=== PATIENT | female | born 1965 | race Caucasian/White ===

== ENCOUNTER → 2017-09-23 | Outpatient (CLI) | payer OTHER | LOC: M EKG 18:29 | DX: R06.09 Other forms of dyspnea (principal) ==

== ENCOUNTER 2017-12-15 11:42 | Day surgery (SDC) | payer OTHER ==
[2017-12-15] MEDS ORDERED: LIDOCAINE 1% MDV 20ML VIAL SQ (12:00)
[2017-12-15] MEDS: LR 1,000 ML IV (13:08)
[2017-12-15] MEDS ORDERED: ONDANSETRON 4MG/2ML VIAL (J2405) As Ordered (15:05)
[2017-12-15] MEDS ORDERED: KETOROLAC 60 MG/2 ML VIAL (J1885) As Ordered (15:05)
[2017-12-15] MEDS ORDERED: dexameTHASONE 4 MG/ML 1ML VIAL (J1100) As Ordered (15:05)
[2017-12-15] MEDS ORDERED: LIDOCAINE 2% INJ 100 MG/5 ML SDV (FOR ANES.) As Ordered (15:05)
[2017-12-15] MEDS ORDERED: PROPOFOL 200 MG/20 ML VIAL As Ordered (15:05)
[2017-12-15] MEDS ORDERED: LIDOCAINE 2% JELLY 30 ML As Ordered (15:05)
[2017-12-15] MEDS ORDERED: MIDAZOLAM INJ 2 MG/2 ML VIAL (J2250) As Ordered (15:06)
[2017-12-15] MEDS ORDERED: fentaNYL 100 MCG/2 ML INJECTION (J3010) As Ordered (15:06)
[2017-12-15] MEDS ORDERED: HYDROmorphone HCL 1 MG/ML SYRINGE (J1170) IV (16:15)
[2017-12-15] MEDS ORDERED: LR 1,000 ML IV (16:15)
[2017-12-15] MEDS: PERCOCET 5MG/325MG TAB PO ×2 (16:32→17:01)
[2017-12-15] MEDS: ONDANSETRON 4MG/2ML VIAL (J2405) IV (16:32)
[2017-12-15] MEDS: fentaNYL 100 MCG/2 ML INJECTION (J3010) IV ×4 (16:36→16:55)
== END 2017-12-15 18:27 | disposition home or self-care (01) ==
LOC: M SDC 11:42
DX: N92.0 Excessive and frequent menstruation with regular cycle (principal); N94.3 Premenstrual tension syndrome; G43.909 Migraine, unspecified, not intractable, without status migrainosus; K59.00 Constipation, unspecified; D64.9 Anemia, unspecified; Z88.2 Allergy status to sulfonamides; Z98.51 Tubal ligation status
CPT/HCPCS: 58563

== ENCOUNTER → 2019-03-03 | Outpatient (REF) | payer OTHER ==
[~2019-03-03] MED LIST: ADVICAP PO; [UNRECOGNIZED DRUG - CODE] PO
[2019-03-03 16:05] LABS: APPEARANCE, URINE CLEAR (CLEAR); BACTERIA, URINE AUTO 1+ (NEGATIVE); BILIRUBIN, URINE AUTO NEGATIVE (NEGATIVE); BLOOD, URINE BLOOD NEGATIVE (NEGATIVE); COLOR, URINE YELLOW (YELLOW); GLUCOSE, URINE (UA) AUTO NEGATIVE (NEGATIVE); KETONE, URINE AUTO 1+ mg/dL (NEGATIVE); LEUKOCYTE ESTERASE, URINE AUTO NEGATIVE (NEGATIVE); MUCUS, URINE SMALL (NEGATIVE); NITRITE, URINE AUTO NEGATIVE (NEGATIVE); PROTEIN, URINE AUTO NEGATIVE (NEGATIVE); RBC, URINE AUTO 0 /HPF (0-3); SPECIFIC GRAVITY URINE AUTO 1.013 (1.002-1.035); SQUAMOUS EPITHELIAL CELL UR AU 2 /HPF (0-6); UROBILINOGEN, URINE AUTO 0.2 mg/dL (0.0-2.0); WBC, URINE AUTO 1 /HPF (0-3)
== END ==
LOC: M LAB REF 15:36
PROVIDERS: ATTEND Nurse Practitioner Family
DX: N39.0 Urinary tract infection, site not specified (principal)

== ENCOUNTER 2021-08-12 19:36 | Inpatient (IN) | payer OTHER, SELFPAY ==
[~2021-08-12] VITALS: Ht 157.5 cm; Wt 87.3 kg
--- OUTSIDE RECORDS SUMMARY | 2021-08-12 19:41 | CCD | Continuity of Care Document ---
Author Author Sravani SEGURA M.D. Organization Unknown Address [address] [place] [address] Phone [phone] Care Team Providers Care Financial Planning Analyst Name Role Phone Colaníbaluabeck AUTM [phone] Problems Description No Active Problems Social History Type Date Description Comments Sex Unknown Tobacco Use Start: Unknown Never Used Smokeless Tobacco ETOH Use Occasionally consumes alcohol ETOH Use Occasionally consumes wine Tobacco Use Start: 09/19/77 End: 09/19/79 Patient is a forme r smoker on and off average of less than pack a week Recreational Drug Use Denies Drug Use Smoking Status Reviewed: 07/09/21 Patient is a former smoker on and off average of less than pack a week Exercise Type/Frequency Exercises regularly Exercise Limitations Joint Pain bilateral f oot pain Tattoo/Piercing Pierced ears Sun Exposure Minimum amount of sun exposure Sun Exposure Uses sunscreen Sun Exposure Uses greater than 30 SPF Seat Belt/Car Seat Always uses seat belt Guns in Home Yes, Locked Up Smoke Alarms Yes Smoke Alarms Carbon Monoxide Detector: Yes Allergies and adverse reactions Active Allergies Criticality Reaction | Severity Comments Date Sulfa Antibiotics Unable to assess criticality Urticaria, hives | M oderate 01/10/2014 Medications Active Medications SIG Qnty Indications Ordering Provide r Date Prednisone 10mg Tablets 4 po q d xs 3 d then 3 q d xs 3 d then 2 q d xs 3 d then 1 qd for 3 days then 1/2 qd for 4 days 32tabs J01.90 Licha Segura M.D. 07/09/2021 Azelastine HCL (Nasal) 0.1% Soluti on use 2 sprays in each nostril two times a day 30ml J01.90 Licha Segura M.D. 07/09/2021 Emergen-C Immune Packet 1 Packet per day Unknown Vitamin D 3 2000Iu Capsules 1 by mouth every day Unknown History Medications Cefdinir 300mg Capsules one by mouth twice a day for 10 days 20caps J01.90 Licha Segura M.D. 06/16 - 06/26/2021 Immunizations CPT Code Status Date Vaccine Lot # [id number] Refused 06/21/2019 Influenza Virus Vaccine, Shmuel drivalent,multidose vial Vital Signs Date Vital Result Comment 07/09/2021 10:53am BP Systolic 166 mmHg BP Diastolic 96 mmHg BP Systolic Recheck 152 mmHg BP Diastolic Recheck 90 mmHg Heart Rate 65 /min Body Temperature 96.8 F Respiratory Rate 17 /min Height 61.75 inches 5'1.75" Weight 190.38 lb O2 % BldC Oximetry 98 % Peak Expiratory Flow Rate 325 Estimated Peak Flow Rate [place] Body Weight 105 lb BMI (Body Mass Index) 35.1 kg/m2 06/16/2021 7:03am BP Systolic 142 mmHg BP Diastolic 84 mmHg BP Systolic Recheck 139 mmHg BP Diastolic Recheck 93 mmHg Heart Rate 66 /min Body Temperature 96.8 F Respiratory Rate 17 /min Height 61.75 inches 5'1.75" Weight 187.12 lb O2 % BldC Oximetry 99 % Peak Expiratory Flow Rate 325 Estimated Peak Flow Rate [place] Body Weight 105 lb BMI (Body Mass Index) 34.5 kg/m2 Results Description No Information Available Procedures Date Code Description Status 06/16/2021 25487 Office/Outpatient Established w MDM 20-29 Min Completed 08/2019 [id number] Mammogram Completed Medical Devices Description No Information Available Encounters Type Date Location Provider Dx Diagnosis Office Visit 06/16/2021 7:05a Main Office Licha Segura M.D. J 01.90 Acute sinusitis, unspecified Assessments Date Code Description Provider 07/09/2021 J01.90 Acute sinusitis, unspecified Licha Sterling M.D. 06/16/2021 J01.90 Acute sinusitis, unspecified Licha Sterling M.D. Plan of Treatment 07/09/2021 - Licha Segura M.D.* J01.90 Acute sinusitis, unspecified* New Medication:* Prednisone 10 mg - 4 po q d xs 3 d then 3 q d xs 3 d then 2 q d xs 3 d then 1 qd for 3 days then 1/2 qd for 4 days * Azelastine HCL (Nasal) 0.1 % - use 2 sprays in each nostril two times a day Functional Status Functional Condition Comment Date Status Bifocal glasses Active Independent with all ADL's Activ e Independent with all IADL's Acti ve Mental Status Mental Condition Comment Date Status None Active Referrals Description No Information Available
--- OUTSIDE RECORDS SUMMARY | 2021-08-12 19:41 | CCD | Continuity of Care Document ---
Author Author Sravani TRIVEDI M.D. Organization Unknown Address [address] [place] [address] Phone [phone] Care Team Providers Care Refrigeration Mechanic Name Role Phone Cologuard AUTM [phone] Problems Description No Active Problems Social History Type Date Description Comments Sex Unknown Tobacco Use Start: Unknown Never Used Smokeless Tobacco ETOH Use Occasionally consumes alcohol ETOH Use Occasionally consumes wine Tobacco Use Start: 09/19/77 End: 09/19/79 Patient is a forme r smoker on and off average of less than pack a week Recreational Drug Use Denies Drug Use Smoking Status Reviewed: 06/16/21 Patient is a former smoker on and [...] Yes Smoke Alarms Carbon Monoxide Detector: Yes Allergies, Adverse Reactions, Alerts Active Allergies Criticality Reaction | Severity Comments Date Sulfa Antibiotics Unable to assess criticality Urticaria, hives | M oderate 01/10/2014 Medications Active Medications SIG Qnty Indications Ordering Provide r Date Cefdinir 300mg Capsules one by mouth twice a day for 10 days 20caps J01.90 Licha Trivedi M.D. 06/16 Emergen-C Immune Packet 1 Packet per day Unknown Vitamin D 3 2000Iu Capsules 1 by mouth every day Unknown History Medications Azelastine HCL (Nasal) 137mcg/[place] Solution 1-2 sprays each nostril once daily 1units J30.9 Terrencea Licha wright M.D. 01/02/2021 - 06/16/2021 Azelastine HCL (Nasal) 0.15% Solut ion 1-2 sprays each nostril once daily 1units J30.9 Licha Trivedi M.D. 12/31/2020 - 01/02/2021 Immunizations CPT Code Status Date Vaccine Lot # [id number] Refused 06/21/2019 Influenza Virus Vaccine, Shmuel drivalent,multidose vial Vital Signs Date Vital Result Comment 06/16/2021 7:03am BP Systolic 142 mmHg BP Diastolic 84 mmHg BP Systolic Recheck 139 mmHg BP Diastolic Recheck 93 mmHg Heart Rate 66 /min Body Temperature 96.8 F Respiratory Rate 17 /min Height 61.75 inches 5'1.75" Weight 187.12 lb O2 % BldC Oximetry 99 % Peak Expiratory Flow Rate 325 Estimated Peak Flow Rate [place] Body Weight 105 lb BMI (Body Mass Index) 34.5 kg/m2 12/31/2020 7:06am BP Systolic 127 mmHg BP Diastolic 84 mmHg Heart Rate 71 /min Body Temperature 96.8 F Respiratory Rate 14 /min Height 61.75 inches 5'1.75" Weight 185.38 lb Peak Expiratory Flow Rate 325 Estimated Peak Flow Rate [place] Body Weight 105 lb BMI (Body Mass Index) 34.2 kg/m2 Results Test Acquired Date Facility Test Result H/L Range Note CBC With Differential/Platelet 12/18/[address] [facility] [address] [place] [address] [id number] [phone] WBC 7.0 x10E3/uL 3.4-10.8 RBC 4.46 x10E6/uL 3.77-5.28 Hemoglobin 13.6 g/dL 11.1-15.9 Hematocrit 43.1 % 34.0-46.6 MCV 97 fL 79-97 MCH 30.5 pg 26.6-33.0 MCHC 31.6 g/dL 31.5-35.7 RDW 12.4 % 11.7-15.4 Platelets 298 x10E3/uL 150-450 Neutrophils 60 % Not Estab. Lymphs 29 % Not Estab. Monocytes 7 % Not Estab. Eos 3 % Not Estab. Basos 1 % Not Estab. Immature Cells TNP Neutrophils (Absolute) 4.2 x10E3/uL 1.4-7.0 Lymphs (Absolute) 2.1 x10E3/uL 0.7-3.1 Monocytes(Absolute) 0.5 x10E3/uL 0.1-0.9 Eos (Absolute) 0.2 x10E3/uL 0.0-0.4 Baso (Absolute) 0.1 x10E3/uL 0.0-0.2 Immature Granulocytes 0 % Not Estab. Immature Grans (Abs) 0.0 x10E3/uL 0.0-0.1 NRBC TNP Hematology Comments: TNP Metabolic Panel (14), Comprehensive 12/18/2020 [facility] [address] [place] [address] [phone] Glucose 119 mg/dL High 65-99 BUN 18 mg/dL 6-24 Creatinine 0.68 mg/dL 0.57-1.00 eGFR If NonAfricn Am 98 mL/min/1.73 >59 eGFR If Africn Am 113 mL/min/1.73 >59 BUN/Creatinine Ratio 26 High 9-23 Sodium 138 mmol/L 134-144 Potassium 4.0 mmol/L 3.5-5.2 Chloride 102 mmol/L 96-106 Carbon Dioxide, Total 25 mmol/L 20-29 Calcium 9.4 mg/dL 8.7-10.2 Protein, Total 7.7 g/dL 6.0-8.5 Albumin 4.2 g/dL 3.8-4.9 Globulin, Total 3.5 g/dL 1.5-4.5 A/G Ratio 1.2 1.2-2.2 Bilirubin, Total 0.3 mg/dL 0.0-1.2 Alkaline Phosphatase 48 IU/L 39-117 Ast (Sgot) 25 IU/L 0-40 Alt (SGPT) 24 IU/L 0-32 Lipid Panel 12/18/2020 [facility] [address] [place] [address] [phone] Cholesterol, Total 223 mg/dL High 100-199 Triglycerides 110 mg/dL 0-149 HDL Cholesterol 73 mg/dL >39 VLDL Cholesterol [place] 19 mg/dL 5-40 LDL Chol Calc (Nih) 131 mg/dL High 0-99 Comment: [place] Laboratory test finding 12/18/2020 [facility] [address] [phone] TSH 2.210 uIU/mL 0.450-4.500 Procedures Date Code Description Status 12/31/2020 03548 Office/Outpatient Established Mo d MDM 30-39 Min Completed 08/2019 [id number] Mammogram Completed Medical Devices Description No Information Available Encounters Type Date Location Provider Dx Diagnosis Office Visit 12/31/2020 7:15a Main Office Licha Trivedi M.D. R 03.0 Elevated blood-pressure reading, w/o diagnosis of htn J30.9 Allergic rhinitis, unspecifi ed Assessments Date Code Description Provider 06/16/2021 J01.90 Acute sinusitis, unspecified Licha Sterling M.D. 12/31/2020 R03.0 Elevated blood-pressure reading, without diagnosis of hypert Licha Trivedi M.D. 12/31/2020 J30.9 Allergic rhinitis, unspecified W Licha washington M.D. Plan of Treatment 06/16/2021 - Licha Trivedi M.D.* J01.90 Acute sinusitis, unspecified* New Medication:* Cefdinir 300 mg - one by mouth twice a day for 10 days Functional Status Functional Condition Comment Date Status Bifocal glasses Active Independent with all ADL's Activ e Independent with all IADL's Acti ve Mental Status Mental Condition Comment Date Status None Active Referrals Description No Information Available
--- OUTSIDE RECORDS SUMMARY | 2021-08-12 19:41 | CCD | Continuity of Care Document ---
Author Author Sravani SEGURA M.D. Organization Unknown Address [address] [place] [address] Phone [phone] Care Team Providers Care Video Tape Transferrer Name Role Phone Colaníbaluabeck AUTM [phone] Problems Description No Active Problems Social History [...] a day for 10 days 20caps J01.90 Lciha Segura M.D. 06/16 - 06/26/2021 Immunizations CPT Code Status Date Vaccine Lot # [id number] Refused 06/21/2019 Influenza Virus Vaccine, Shmuel drivalent,multidose [...] Flow Rate 325 Estimated Peak Flow Rate [place] Body Weight 105 lb BMI (Body Mass [...] Flow Rate 325 Estimated Peak Flow Rate [place] Body Weight 105 lb BMI (Body Mass Index) 34.5 kg/m2 Results Description No Information Available Procedures Date Code Description Status 07/09/2021 96504 Office/Outpatient Established Lo w MDM 20-29 Min Completed 06/16/2021 69439 Office/Outpatient Established Lo w MDM 20-29 Min Completed 08/2019 [id number] Mammogram Completed Medical Devices Description No Information Available Encounters Type Date Location Provider Dx Diagnosis Office Visit 07/09/2021 10:45a Main Office Licha Segura M.D. J Acute sinusitis, unspecified Office Visit 06/16/2021 7:05a Main Office Licha Segura M.D. J Acute sinusitis, unspecified Assessments Date Code Description [...]
--- OUTSIDE RECORDS SUMMARY | 2021-08-12 19:41 | CCD | Continuity of Care Document ---
Author Author Sravani TRIVEDI M.D. Organization Unknown Address [address] [place] [address] Phone [phone] Care Team Providers Care Educational Technology Coordinator Name Role Phone Cologuard AUTM [phone] Problems Description No Active Problems Social History [...] day Unknown History Medications Azelastine HCL (Nasal) 137mcg/[place] Solution 1-2 sprays each nostril once daily 1units J30.9 Terrencea Licha wright M.D. 01/02/2021 - 06/16/2021 Azelastine HCL (Nasal) 0.15% Solut ion 1-2 sprays each nostril once daily 1units J30.9 Licha Trivedi M.D. 12/31/2020 - 01/02/2021 Immunizations CPT Code Status Date Vaccine Lot # [id number] Refused 06/21/2019 Influenza Virus Vaccine, Shmuel drivalent,multidose [...] Flow Rate 325 Estimated Peak Flow Rate [place] Body Weight 105 lb BMI (Body Mass Index) 34.5 kg/m2 12/31/2020 7:06am BP Systolic 127 mmHg BP Diastolic 84 mmHg Heart Rate 71 /min Body Temperature 96.8 F Respiratory Rate 14 /min Height 61.75 inches 5'1.75" Weight 185.38 lb Peak Expiratory Flow Rate 325 Estimated Peak Flow Rate [place] Body Weight 105 lb BMI (Body Mass Index) 34.2 kg/m2 Results Test Acquired Date Facility Test Result H/L Range Note CBC With Differential/Platelet 12/18/[address] [facility] [address] [place] [address] [phone] WBC 7.0 x10E3/uL 3.4-10.8 RBC 4.46 x10E6/uL [...] Panel (14), Comprehensive 12/18/2020 [facility] [address] [place] [address] [phone] Glucose 119 mg/dL High 65-99 BUN 18 [...] IU/L 0-32 Lipid Panel 12/18/2020 [facility] [address] [place] [address] [phone] Cholesterol, Total 223 mg/dL High 100-199 Triglycerides 110 mg/dL 0-149 HDL Cholesterol 73 mg/dL >39 VLDL Cholesterol [place] 19 mg/dL 5-40 LDL Chol Calc (Nih) 131 mg/dL High 0-99 Comment: [place] Laboratory test finding 12/18/2020 [facility] [address] [place] [address] [phone] TSH 2.210 uIU/mL 0.450-4.500 Procedures Date Code Description Status 06/16/2021 06620 Office/Outpatient Established Lo w MDM 20-29 Min Completed 12/31/2020 49969 Office/Outpatient Established Mo d MDM 30-39 Min Completed 08/2019 [id number] Mammogram Completed Medical Devices Description No Information Available Encounters Type Date Location Provider Dx Diagnosis Office Visit 06/16/2021 7:05a Main Office Licha Trivedi M.D. J 01.90 Acute sinusitis, unspecified Office Visit 12/31/2020 7:15a Main Office Licha Trivedi M.D. R 03.0 Elevated blood-pressure reading, w/o diagnosis of htn J30.9 Allergic rhinitis, unspecifi ed Assessments Date Code Description Provider 06/16/2021 J01.90 Acute sinusitis, unspecified Kapil Licha land M.D. 12/31/2020 R03.0 Elevated blood-pressure reading, without [...]
--- OUTSIDE RECORDS SUMMARY | 2021-08-12 19:41 | CCD | Continuity of Care Document ---
Author Author Sravani SEGURA M.D. Organization Unknown Address [address] [place] [address] Phone [phone] Care Team Providers Care Branch Associate Teller Name Role Phone Colaníbaluabeck AUTM [phone] Problems Description No Active Problems Social History [...] 1/2 qd for 4 days 32tabs J01.90 Lciha Segura M.D. 07/09/2021 Azelastine HCL (Nasal) 0.1% [...] CPT Code Status Date Vaccine Lot # [id number] Refused 06/21/2019 Influenza Virus Vaccine, Shmuel drivalent,multidose [...] Flow Rate 325 Estimated Peak Flow Rate [place] Body Weight 105 lb BMI (Body Mass [...] Flow Rate 325 Estimated Peak Flow Rate [place] Body Weight 105 lb BMI (Body Mass Index) 34.5 kg/m2 Results Description No Information Available Procedures Date Code Description Status 06/16/2021 62867 Office/Outpatient Established w MDM 20-29 Min Completed 08/2019 [id number] Mammogram Completed Medical Devices Description No Information [...]
--- OUTSIDE RECORDS SUMMARY | 2021-08-12 19:41 | CCD | Continuity of Care Document ---
Author Author Sravani SEGURA M.D. Organization Unknown Address [address] [place] [address] Phone [phone] Care Team Providers Care Cemetery Manager Name Role Phone Colaníbaluabeck AUTM [phone] Problems Description No Active Problems Social History [...] CPT Code Status Date Vaccine Lot # [id number] Refused 06/21/2019 Influenza Virus Vaccine, Shmuel drivalent,multidose [...] Flow Rate 325 Estimated Peak Flow Rate [place] Body Weight 105 lb BMI (Body Mass [...] Flow Rate 325 Estimated Peak Flow Rate [place] Body Weight 105 lb BMI (Body Mass Index) 34.5 kg/m2 Results Description No Information Available Procedures Date Code Description Status 07/09/2021 69782 Office/Outpatient Established Lo w MDM 20-29 Min Completed 06/16/2021 22271 Office/Outpatient Established Lo w MDM 20-29 Min Completed 08/2019 [id number] Mammogram Completed Medical Devices Description No Information [...]
--- OUTSIDE RECORDS SUMMARY | 2021-08-12 19:41 | CCD | Continuity of Care Document ---
Author Author Sravani SEGURA M.D. Organization Unknown Address [address] [place] [address] Phone [phone] Care Team Providers Care Ink Blender Name Role Phone Colanbíaluabeck AUTM [phone] Problems Description No Active Problems Social History [...] CPT Code Status Date Vaccine Lot # [id number] Refused 06/21/2019 Influenza Virus Vaccine, Shmuel drivalent,multidose [...] Flow Rate 325 Estimated Peak Flow Rate [place] Body Weight 105 lb BMI (Body Mass [...] Flow Rate 325 Estimated Peak Flow Rate [place] Body Weight 105 lb BMI (Body Mass Index) 34.5 kg/m2 Results Description No Information Available Procedures Date Code Description Status 07/09/2021 22577 Office/Outpatient Established Lo w MDM 20-29 Min Completed 06/16/2021 75527 Office/Outpatient Established Lo w MDM 20-29 Min Completed 08/2019 [id number] Mammogram Completed Medical Devices Description No Information [...]
--- OUTSIDE RECORDS SUMMARY | 2021-08-12 19:42 | CCD ---
Author Author [facility] Organization [facility] Address Unknown Phone Unavailable Care Team Providers Care Credit Administration Specialist Name Role Phone Judy Segura MD Unavailable Unavailable Colton, Judy Hurt MD Unavailable Unavailable Colton, Judy Hurt MD Unavailable Unavailable Colton, Judy Hurt MD Unavailable Unavailable Colton, Judy Hurt MD Unavailable Unavailable Colton, Judy Hurt MD Unavailable Unavailable Colton, Judy Hurt MD Unavailable Unavailable Colton, Judy Hurt MD Unavailable Unavailable Colton, Judy Hurt MD Unavailable Unavailable Colton, Judy Hurt MD Unavailable Unavailable Colton, Judy Hutr MD Unavailable Unavailable Colton, Judy Hurt MD Unavailable Unavailable Colton, Judy Hurt MD Unavailable Unavailable Colton, Judy Hurt MD Unavailable Unavailable Colton, Judy Hurt MD Unavailable Unavailable Colton, Judy Hurt MD Unavailable Unavailable Colton, Judy Hurt MD Unavailable Unavailable Colton, Judy Hurt MD Unavailable Unavailable Colton, Judy Hurt MD Unavailable Unavailable Colton, Judy Hurt MD Unavailable Unavailable Colton, Judy Hurt MD Unavailable Unavailable Colton, Judy Hurt MD Unavailable Unavailable Colton, Judy Hurt MD Unavailable Unavailable Colton, Judy Hurt MD Unavailable Unavailable Colton, Judy Hurt MD Unavailable Unavailable Colton, Judy Hurt MD Unavailable Unavailable Colton, Judy Hurt MD Unavailable Unavailable Colton, Judy Hurt MD Unavailable Unavailable Colton, Judy Hurt MD Unavailable Unavailable Colton, Judy Hurt MD Unavailable Unavailable Colton, Judy Hurt MD Unavailable Unavailable Colton, Judy Hurt MD Unavailable Unavailable Colton, Judy Hurt MD Unavailable Unavailable Colton, Judy Hurt MD Unavailable Unavailable Colton, Judy Hurt MD Unavailable Unavailable Colton, Judy Hurt MD Unavailable Unavailable Colton, Judy Hurt MD Unavailable Unavailable Oclton, Judy Hurt MD Unavailable Unavailable Colton, A Licha MD Unavailable Unavailable Colton, A Licha MD Unavailable Unavailable Colton, A Licha MD Unavailable Unavailable Colton, A Licha MD Unavailable Unavailable Colton, A Licha MD Unavailable Unavailable Colton, A Licha MD Unavailable Unavailable Colton, A Licha MD Unavailable Unavailable Colton, A Licha MD Unavailable Unavailable Colton, A Licha MD Unavailable Unavailable Colton, A Licha MD Unavailable Unavailable Colton, A Licha MD Unavailable Unavailable Colton, A Licha MD Unavailable Unavailable Colton, A Licha MD Unavailable Unavailable Colton, A Licha MD Unavailable Unavailable Colton, A Licha MD Unavailable Unavailable Colton, A Licha MD Unavailable Unavailable Colton, A Licha MD Unavailable Unavailable Colton, A Licha MD Unavailable Unavailable Colton, A Licha MD Unavailable Unavailable Colton, A Licha MD Unavailable Unavailable Colton, A Licha MD Unavailable Unavailable Colton, A Licha MD Unavailable Unavailable Colton, A Licha MD Unavailable Unavailable Colton, A Licha MD Unavailable Unavailable Colton, A Licha MD Unavailable Unavailable Colton, A Licha MD Unavailable Unavailable Colton, A Licha MD Unavailable Unavailable Colton, A Licha MD Unavailable Unavailable Colton, A Licha MD Unavailable Unavailable Colton, A Licha MD Unavailable Unavailable Colton, A Licha MD Unavailable Unavailable Colton, A Licha MD Unavailable Unavailable Colton, A Licha MD Unavailable Unavailable Colton, A Licha MD Unavailable Unavailable Colton, A Licha MD Unavailable Unavailable Colton, A Licha MD Unavailable Unavailable Colton, A Licha MD Unavailable Unavailable Colton, A Licha MD Unavailable Unavailable Colton, A Licha MD Unavailable Unavailable Colton, A Licha MD Unavailable Unavailable Colton, A Licha MD Unavailable Unavailable Colton, A Licha MD Unavailable Unavailable Colton, A Licha MD Unavailable Unavailable Colton, A Licha MD Unavailable Unavailable Re-disclosure Warning The records that you are about to access may contain information from federally-assisted alcohol or drug abuse programs. If such information is present, then the following federally mandated warning applies: This information has been disclosed to you from records protected by federal confidentiality rules (42 CFR part 2). The federal rules prohibit you from making any further disclosure of this information unless further disclosure is expressly permitted by the written consent of the person to whom it pertains or as otherwise permitted by 42 CFR part 2. A general authorization for the release of medical or other information is NOT sufficient for this purpose. The Federal rules restrict any use of the information to criminally investigate or prosecute any alcohol or drug abuse patient.The records that you are about to access may contain highly sensitive health information, the redisclosure of which is protected by Article 27-F of the [facility] Public Health law. If you continue you may have access to information: Regarding HIV / AIDS; Provided by facilities licensed or operated by the [facility] Office of Mental Health; or Provided by the [facility] Office for People With Developmental Disabilities. If such information is present, then the following [facility] mandated warning applies: This information has been disclosed to you from confidential records which are protected by state law. State law prohibits you from making any further disclosure of this information without the specific written consent of the person to whom it pertains, or as otherwise permitted by law. Any unauthorized further disclosure in violation of state law may result in a fine or [place] [facility] sentence or both. A general authorization for the release of medical or other information is NOT sufficient authorization for further disc losure. 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 Encounter Providers Location Date Indications Data Source(s ) Outpatient Attender: Licha Segura MD Main Office 07/09/2021 10:45:0 0 AM EDT [facility] Outpatient Attender: Licha Segura MD Main Office 06/16/2021 07:05:0 0 AM EDT [facility] Outpatient Attender: Licha Segura MD Main Office 12/31/2020 07:15:0 0 AM EDT [facility] Outpatient Attender: Licha Segura MD Main Office 09/23/2020 02:45:0 0 PM EST [facility] Medications Medication Brand Name Start Date Product Form Dose Route Admi nistrative Instructions Pharmacy Instructions Status Indications Reaction Description Data Source(s) Prednisone 10 MG Oral Tablet Prednisone 07/09/2021 12:00:00 AM EDT ORAL active [facility] 137 mcg (0.1 %) 07/09/2021 12:00:00 AM EDT aerosol,spray 30 SPRAY 2 SPRAYS IN EACH NOSTRIL TWO TIMES A DAY SPRAY 2 SPRAYS IN EACH NOSTRIL TWO TIMES A DAY SOLD: 07/09/2021 [facility] Azelastine HCL (Nasal) Azelastine HCL (Nasal) 07/09/2021 12:00:00 AM E DT active [facility] 10 mg 07/09/2021 12:00:00 AM EDT tablet 32 TAKE FOUR TABLETS BY MOUTH EVERY DAY FOR 3 DAYS, THEN 3 TABLETS FOR 3 DAYS, THEN 2 TABLETS FOR 3 DAYS, THEN 1 TABLET FOR 3 DAYS, THEN ONE-HALF TABLET FOR 4 DAYS TAKE FOUR TABLETS BY MOUTH EVERY DAY FOR 3 DAYS, THEN 3 TABLETS FOR 3 DAYS, THEN 2 TABLETS FOR 3 DAYS, THEN 1 TABLET FOR 3 DAYS, THEN ONE-HALF TABLET FOR 4 DAYS SOLD: 07/09/2021 [facility] 300 mg 06/16/2021 12:00:00 AM EDT capsule 20 TAKE ONE CAPSULE BY MOUTH TWICE A DAY FOR 10 DAYS TAKE ONE CAPSULE BY MOUTH TWICE A DAY FOR 10 DAYS SOLD : 06/16/2021 [facility] cefdinir 300 MG Oral Capsule Cefdinir 06/16/2021 12:00:00 AM EDT ORAL completed [facility] 250 mg 06/08/2021 12:00:00 AM EDT tablet 6 TAKE TWO TABLETS BY MOUTH AT ONCE ON THE FIRST DAY THEN TAKE ONE DAILY THEREAFTER TAKE TWO TABLETS BY MOUTH AT ONCE ON THE FIRST DAY THEN TAKE ONE DAILY THEREAFTER SOLD: 06/08/2021 [facility] Azelastine HCL (Nasal) Azelastine HCL (Nasal) 01/02/2021 12:00:00 AM E DT completed [facility] Azelastine HCL (Nasal) Azelastine HCL (Nasal) 12/31/2020 12:00:00 AM E DT completed [facility] 250 mg 07/25/2020 12:00:00 AM EST tablet 6 TAKE TWO TABLETS BY MOUTH AT ONCE ON THE FIRST DAY THEN TAKE ONE DAILY THEREAFTER TAKE TWO TABLETS BY MOUTH AT ONCE ON THE FIRST DAY THEN TAKE ONE DAILY THEREAFTER SOLD: 08/02/2020 [facility] Insurance Providers Payer name Policy type / Coverage type Policy ID Covered republican ID Covered republican's relationship to redding Policy Redding Plan Information [facility] [id number] 2 [id number] [place] PPO 302/307 [id number] SP [id number] [facility] [id number] [facility] UNAVAILABLE P UNAV AILABLE [facility] Commercial [id number] Family Dependent [id number] [facility] [id number] Family Dependent [id number] [facility] [id number] Family Dependent [id number] [employer] [place] 304/804 [id number] [employer] BCBS B [id number] S [id number] [employer] BCBS B [id number] P [id number] [id number] BS Of [facility] [id number] Family Dependent [id number] BS Of [facility] [place] [id number] Family Dependent BS Of [facility] [id number] Family Dependent [employer] [place] [id number] SELF PAY ONLY [id number] SP [id number] BCBS [place] 304/804 [id number] [facility] [id number] [facility] [id number] SP [id number] Problems, Conditions, and Diagnoses No Information Surgeries/Procedures Procedure Description Date Indications Data Source(s) OFFICE OUTPATIENT VISIT 15 MINUTES 07/09/2021 12:00:00 AM EDT [facility] OFFICE OUTPATIENT VISIT 15 MINUTES 06/16/2021 12:00:00 AM EDT [facility] OFFICE OUTPATIENT VISIT 25 MINUTES 12/31/2020 12:00:00 AM EDT [facility] Results ID Date Data Source [id number] 12/18/2020 01:45:00 PM EDT [facility] Name Value Range Interpretation Code Description Data Dorothy rce(s) Supporting Document(s) Thyrotropin [Units/volume] in Serum or Plasma 2.210 uIU/mL 0.450-4.50 0 [facility] ID Date Data Source [id number] 12/18/2020 01:45:00 PM EDT [facility] Name Value Range Interpretation Code Description Data Dorothy rce(s) Supporting Document(s) Triglyceride [Mass/volume] in Serum or Plasma 110 mg/dL 0-149 [facility] Cholesterol [Mass/volume] in Serum or Plasma 223 mg/dL 100-199 [facility] Cholesterol in HDL [Mass/volume] in Serum or Plasma 73 mg/dL [facility] Laboratory test finding (navigational concept) 19 mg/dL 5-40 [facility] Laboratory test finding (navigational concept) 131 mg/dL 0-99 [facility] Comment: Laboratory test result [facility] ID Date Data Source [id number] 12/18/2020 01:45:00 PM EDT [facility] Name Value Range Interpretation Code Description Data Dorothy rce(s) Supporting Document(s) Glucose [Mass/volume] in Serum or Plasma 119 mg/dL 65-99 [facility] Urea nitrogen [Mass/volume] in Serum or Plasma 18 mg/dL 6-24 [facility] Creatinine [Mass/volume] in Serum or Plasma 0.68 mg/dL 0.57-1.00 [facility] eGFR If NonAfricn Am 98 mL/min/1.73 [facility] eGFR If Africn Am 113 mL/min/1.73 [facility] Urea nitrogen/Creatinine [Mass Ratio] in Serum or Plasma 26 9 -23 [facility] Sodium [Moles/volume] in Serum or Plasma 138 mmol/L 134-144 [facility] Chloride [Moles/volume] in Serum or Plasma 102 mmol/L 96-106 [facility] Carbon dioxide, total [Moles/volume] in Serum or Plasma 25 mmol/L 20 -29 [facility] Potassium [Moles/volume] in Serum or Plasma 4.0 mmol/L 3.5-5.2 [facility] Protein, Total 7.7 g/dL 6.0-8.5 [facility] Albumin [Mass/volume] in Serum or Plasma 4.2 g/dL 3.8-4.9 [facility] Calcium [Mass/volume] in Serum or Plasma 9.4 mg/dL 8.7-10.2 [facility] Bilirubin.total [Mass/volume] in Serum or Plasma 0.3 mg/dL 0.0-1.2 [facility] Globulin [Mass/volume] in Serum by calculation 3.5 g/dL 1.5-4.5 [facility] Albumin/Globulin [Mass Ratio] in Serum or Plasma 1.2 1.2-2.2 [facility] Alkaline phosphatase [Enzymatic activity/volume] in Serum or Plasma 48 IU/L 39-117 [facility] Aspartate aminotransferase [Enzymatic activity/volume] in Serum or Plasma 25 IU/L 0-40 [facility] Alanine aminotransferase [Enzymatic activity/volume] in Seru m or Plasma 24 IU/L 0-32 [facility] ID Date Data Source [id number] 12/18/2020 01:45:00 PM EDT [facility] Name Value Range Interpretation Code Description Data Dorothy rce(s) Supporting Document(s) Leukocytes [#/volume] in Blood by Automated count 7.0 x10E3/uL 3.4-10 .8 [facility] Hematocrit [Volume Fraction] of Blood by Automated count 43.1 % 3 4.0-46.6 [facility] Hemoglobin [Mass/volume] in Blood 13.6 g/dL 11.1-15.9 [facility] Erythrocytes [#/volume] in Blood by Automated count 4.46 x10E6/uL 3.7 7-5.28 [facility] Erythrocyte mean corpuscular volume [Entitic volume] by Auto mated count 97 fL 79-97 [facility] Erythrocyte mean corpuscular hemoglobin [Entitic mass] by Automated count 30.5 pg 26.6-33.0 [facility] Platelets [#/volume] in Blood by Automated count 298 x10E3/uL 150-450 [facility] Erythrocyte distribution width [Ratio] by Automated count 12.4 % 11.7-15.4 [facility] Erythrocyte mean corpuscular hemoglobin concentration [Mass/volume] by Automated count 31.6 g/dL 31.5-35.7 [facility] Neutrophils 60 % [facility] Lymphocytes/100 leukocytes in Blood by Automated count 29 % [facility] Eosinophils/100 leukocytes in Blood by Automated count 3 % [facility] Monocytes/100 leukocytes in Blood by Automated count 7 % [facility] Basophils/100 leukocytes in Blood by Automated count 1 % [facility] Immature cells [#/volume] in Blood Laboratory test result [facility] Monocytes [#/volume] in Blood 0.5 x10E3/uL 0.1-0.9 [facility] Neutrophils [#/volume] in Blood by Automated count 4.2 x10E3/uL 1.4-7 .0 [facility] Lymphocytes [#/volume] in Blood 2.1 x10E3/uL 0.7-3.1 [facility] Basophils [#/volume] in Blood by Automated count 0.1 x10E3/uL 0.0-0.2 [facility] Immature granulocytes/100 leukocytes in Blood by Automated count 0 % [facility] Eosinophils [#/volume] in Blood by Automated count 0.2 x10E3/uL 0.0-0 .4 [facility] Morphology [Interpretation] in Blood Narrative Laboratory test result [facility] Nucleated erythrocytes/100 leukocytes [Ratio] in Blood by Automated count Laboratory test result [facility] Immature granulocytes [#/volume] in Blood by Automated count 0.0 x10E3/uL 0.0-0.1 [facility] ID Date Data Source [id number] 12/19/2020 06:06:00 AM EDT [facility] Name Value Range Interpretation Code Description Data Dorothy rce(s) Supporting Document(s) WBC 7.0 x10E3/uL 3.4-10.8 [facility] RBC 4.46 x10E6/uL 3.77-5.28 [facility] Hemoglobin 13.6 g/dL 11.1-15.9 [facility] Hematocrit 43.1 % 34.0-46.6 [facility] MCV 97 fL 79-97 [facility] MCH 30.5 pg 26.6-33.0 [facility] MCHC 31.6 g/dL 31.5-35.7 [facility] RDW 12.4 % 11.7-15.4 [facility] Platelets 298 x10E3/uL 150-450 [facility] Neutrophils 60 % Not Estab. [facility] Lymphs 29 % Not Estab. [facility] Monocytes 7 % Not Estab. [facility] Eos 3 % Not Estab. [facility] Basos 1 % Not Estab. [facility] Neutrophils (Absolute) 4.2 x10E3/uL 1.4-7.0 [facility] Lymphs (Absolute) 2.1 x10E3/uL 0.7-3.1 [facility] Monocytes(Absolute) 0.5 x10E3/uL 0.1-0.9 [facility] Eos (Absolute) 0.2 x10E3/uL 0.0-0.4 [facility] Baso (Absolute) 0.1 x10E3/uL 0.0-0.2 [facility] Immature Granulocytes 0 % Not Estab. [facility] Immature Grans (Abs) 0.0 x10E3/uL 0.0-0.1 [facility] ID Date Data Source [id number] 12/19/2020 07:05:00 AM EDT [facility] Name Value Range Interpretation Code Description Data Dorothy rce(s) Supporting Document(s) Glucose 119 mg/dL 65-99 Above high normal [facility] BUN 18 mg/dL 6-24 [facility] Creatinine 0.68 mg/dL 0.57-1.00 [facility] eGFR If NonAfricn Am 98 mL/min/1.73 >59 [facility] eGFR If Africn Am 113 mL/min/1.73 >59 [facility] BUN/Creatinine Ratio 26 9-23 Above high normal [facility] Sodium 138 mmol/L 134-144 [facility] Potassium 4.0 mmol/L 3.5-5.2 [facility] Chloride 102 mmol/L 96-106 [facility] Carbon Dioxide, Total 25 mmol/L 20-29 [facility] Calcium 9.4 mg/dL 8.7-10.2 [facility] Protein, Total 7.7 g/dL 6.0-8.5 [facility] Albumin 4.2 g/dL 3.8-4.9 [facility] Globulin, Total 3.5 g/dL 1.5-4.5 [facility] A/G Ratio 1.2 1.2-2.2 [facility] Bilirubin, Total 0.3 mg/dL 0.0-1.2 [facility] Alkaline Phosphatase 48 IU/L 39-117 [facility] AST (SGOT) 25 IU/L 0-40 [facility] ALT (SGPT) 24 IU/L 0-32 [facility] ID Date Data Source [id number] 12/19/2020 07:05:00 AM EDT [facility] Name Value Range Interpretation Code Description Data Dorothy rce(s) Supporting Document(s) Cholesterol, Total 223 mg/dL 100-199 Above high normal [facility] [place] Triglycerides 110 mg/dL 0-149 [facility] HDL Cholesterol 73 mg/dL >39 [facility] VLDL Cholesterol [place] 19 mg/dL 5-40 [facility] LDL Chol Calc (NIH) 131 mg/dL 0-99 Above high normal [facility] ID Date Data Source [id number] 12/19/2020 07:05:00 AM EDT [facility] Name Value Range Interpretation Code Description Data Dorothy rce(s) Supporting Document(s) TSH 2.210 uIU/mL 0.450-4.500 [facility] Procedure Social History Code Duration Value Status Description Data Source(s ) Smoking 07/09/2021 12:00:00 AM EDT - 09/19/1980 12:00:00 AM EST Patient is a former smoker completed Patient is a former smoker [facility] Vital Signs ID Date Data Source [id number] Name Value Range Interpretation Code Description Data Source(s) Body temperature 96.8 [degF] 96.8 [degF] [facility] Respiratory rate 17 /min 17 /min [facility] Diastolic blood pressure 96 mm[Hg] 96 mm[Hg] [facility] Systolic blood pressure 152 mm[Hg] 152 mm[Hg] M [facility] Diastolic blood pressure 90 mm[Hg] 90 mm[Hg] [facility] Body height 61.75 [in_i] 61.75 [in_i] [facility] 5'1.75" Body weight 190.38 [lb_av] 190.38 [lb_av] [facility] Oxygen saturation in Arterial blood by Pulse oximetry 98 % 98 % [facility] [place] body weight 105 [lb_av] 105 [lb_av] [facility] Body mass index (BMI) [Ratio] 35.1 kg/m2 35.1 k g/m2 [facility] Systolic blood pressure 166 mm[Hg] 166 mm[Hg] [facility] Heart rate 65 /min 65 /min [facility] Body height 61.75 [in_i] 61.75 [in_i] [facility] 5'1.75" Body mass index (BMI) [Ratio] 34.5 kg/m2 34.5 k g/m2 [facility] Oxygen saturation in Arterial blood by Pulse oximetry 99 % 99 % [facility] [place] body weight 105 [lb_av] 105 [lb_av] [facility] Body weight 187.12 [lb_av] 187.12 [lb_av] [facility] Systolic blood pressure 142 mm[Hg] 142 mm[Hg] [facility] Diastolic blood pressure 84 mm[Hg] 84 mm[Hg] [facility] Systolic blood pressure 139 mm[Hg] 139 mm[Hg] [facility] Diastolic blood pressure 93 mm[Hg] 93 mm[Hg] [facility] Heart rate 66 /min 66 /min [facility] Body temperature 96.8 [degF] 96.8 [degF] [facility] Respiratory rate 17 /min 17 /min [facility] Body temperature 96.8 [degF] 96.8 [degF] [facility] Respiratory rate 14 /min 14 /min [facility] Body height 61.75 [in_i] 61.75 [in_i] [facility] 5'1.75" Heart rate 71 /min 71 /min [facility] Systolic blood pressure 127 mm[Hg] 127 mm[Hg] [facility] Diastolic blood pressure 84 mm[Hg] 84 mm[Hg] [facility] Body weight 185.38 [lb_av] 185.38 [lb_av] [facility] [place] body weight 105 [lb_av] 105 [lb_av] [facility] Body mass index (BMI) [Ratio] 34.2 kg/m2 34.2 k g/m2 [facility] Body mass index (BMI) [Ratio] 34.4 kg/m2 34.4 k g/m2 [facility] Systolic blood pressure 142 mm[Hg] 142 mm[Hg] [facility] recheck Systolic blood pressure 158 mm[Hg] 158 mm[Hg] [facility] Diastolic blood pressure 103 mm[Hg] 103 mm[Hg] [facility] Diastolic blood pressure 89 mm[Hg] 89 mm[Hg] [facility] recheck Heart rate 66 /min 66 /min [facility] Body temperature 97.1 [degF] 97.1 [degF] [facility] Respiratory rate 16 /min 16 /min [facility] Body height 61.75 [in_i] 61.75 [in_i] [facility] 5'1.75" Body weight 186.50 [lb_av] 186.50 [lb_av] [facility] Oxygen saturation in Arterial blood by Pulse oximetry 99 % 99 % [facility] [place] body weight 105 [lb_av] 105 [lb_av] [facility]
[2021-08-12] MEDS ORDERED: ONDANSETRON 4MG/2ML VIAL IV ONE (21:05)
[2021-08-12] MEDS ORDERED: MORPHINE 4 MG/ML 1ML VIAL/SYRINGE (J2270) IV PRN (21:05)
[2021-08-12] MEDS ORDERED: ISOVUE-370 76% 100ML VIAL As Ordered ONE (21:25)
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
--- OUTSIDE RECORDS SUMMARY | 2021-08-12 23:09 | CCD ---
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 Public Health law. If you continue you may have access to information: Regarding HIV / AIDS; Provided by facilities licensed or operated by the [facility] Office of Mental Health; or Provided by the [facility] Office for People With Developmental Disabilities. If such information is present, then the following [facility] mandated warning applies: This information [...] law may result in a fine or long term sentence or both. A general authorization for the release of medical or other information is NOT sufficient authorization for further disc losure. 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 Encounter Providers Location Date Indications Data [...] ONE-HALF TABLET FOR 4 DAYS SOLD: 07/09/2021 [facility] 300 mg 06/16/2021 12:00:00 AM EDT capsule 20 TAKE ONE CAPSULE BY MOUTH TWICE A DAY FOR 10 DAYS TAKE ONE CAPSULE BY MOUTH TWICE A DAY FOR 10 DAYS SOLD : 06/16/2021 [facility] cefdinir 300 MG Oral Capsule Cefdinir 06/16/2021 12:00:00 AM EDT ORAL completed [facility] 250 mg 06/08/2021 12:00:00 AM EDT tablet 6 TAKE TWO TABLETS BY MOUTH AT ONCE ON THE FIRST DAY THEN TAKE ONE DAILY THEREAFTER TAKE TWO TABLETS BY MOUTH AT ONCE ON THE FIRST DAY THEN TAKE ONE DAILY THEREAFTER SOLD: 06/08/2021 [facility] Azelastine HCL (Nasal) Azelastine HCL (Nasal) [...] type / Coverage type Policy ID Covered green party ID Covered green party's relationship to redding Policy Redding Plan Information [facility] [id number] 2 [id number] [place]/307 [id number] SP [id number] SELF PAY ONLY [id number] SP [id number] [facility] [id number] S [id number] [facility] UNAVAILABLE P UNAV AILABLE r Commercial [id number] Family Dependent [id number] [facility] Part B [id number] Family Dependent [id number] r Commercial [id number] Family Dependent [id number] [place] 304/804 [id number] 2 [id number] [place] BCBS B [id number] S [id number] [employer] BCBS B [id number] P [id number] [id number] BS Of [facility] [id number] Family Dependent [id number] [facility] [id number] Family Dependent BS Of [facility] [place] [id number] Family Dependent BC[place] 304/804 [id number] NO FAULT [id number] SP [id number] BC[place] 304/804 [id number] [facility] [id number] Problems, Conditions, and Diagnoses No Information Surgeries/Procedures Procedure Description Date Indications Data Source(s) OFFICE OUTPATIENT VISIT 15 MINUTES 07/09/2021 12:00:00 AM EDT [facility] ([facility] OFFICE OUTPATIENT VISIT 15 MINUTES 06/16/2021 12:00:00 AM EDT [facility] OFFICE OUTPATIENT VISIT 25 MINUTES 12/31/2020 12:00:00 AM EDT [facility] Results ID Date Data Source [id number] 12/18/2020 01:45:00 PM EDT [facility] Name Value Range Interpretation Code Description Data Dorothy rce(s) Supporting Document(s) Thyrotropin [Units/volume] in Serum or Plasma 2.210 uIU/mL 0.450-4.50 0 [facility] ID Date Data Source [id number] 12/18/2020 01:45:00 PM EDT [facility] ([facility]a Segura [...] [facility].C.) Comment: Laboratory test result [facility] ([facility] Colton[facility] ID Date Data Source [id number] 12/18/2020 01:45:00 PM EDT [facility] ([facility]a Segura [...] or Plasma 102 mmol/L 96-106 [facility] Carbon dioxide, total [Moles/volume] in [...] [facility] ID Date Data Source [id number] 12/18/2020 01:45:00 PM EDT [facility] ([facility]icha Segura [...] [facility] ID Date Data Source [id number] 12/19/2020 06:06:00 AM EDT [facility] Name Value [...] 0.0-0.1 [facility] ID Date Data Source [id number] 12/19/2020 07:05:00 AM EDT [facility] Name Value [...] IU/L 0-32 [facility] ID Date Data Source [id number] 12/19/2020 07:05:00 AM EDT [facility] Name Value Range Interpretation Code Description Data Dorothy rce(s) Supporting Document(s) Cholesterol, Total 223 mg/dL 100-199 Above high normal [facility] [place] Triglycerides 110 mg/dL 0-149 [facility] HDL Cholesterol 73 mg/dL >39 [facility] VLDL Cholesterol [place] 19 mg/dL 5-40 [facility] LDL Chol Calc (NIH) 131 mg/dL 0-99 Above high normal [facility] ID Date Data Source [id number] 12/19/2020 07:05:00 AM EDT [facility] Name Value [...] Value Range Interpretation Code Description Data Source(s) Respiratory rate 17 /min 17 /min [facility] Body temperature 96.8 [degF] 96.8 [degF] [facility] Diastolic blood pressure 96 mm[Hg] 96 mm[Hg] [facility] Systolic blood pressure 152 mm[Hg] 152 mm[Hg] M [facility] ([facility] Diastolic blood pressure 90 mm[Hg] 90 mm[Hg] [facility] Body mass index (BMI) [Ratio] 35.1 kg/m2 35.1 k g/m2 [facility] Body height 61.75 [in_i] 61.75 [in_i] [facility] ([facility] 5'1.75" Body weight 190.38 [lb_av] 190.38 [lb_av] [facility] T ([facility] Oxygen saturation in Arterial blood by Pulse oximetry 98 % 98 % [facility] [place] body weight 105 [lb_av] 105 [lb_av] [facility] T ([facility] Systolic blood pressure 166 mm[Hg] 166 mm[Hg] M [facility] ([facility] Heart rate 65 /min 65 /min [facility] Body mass index (BMI) [Ratio] 34.5 kg/m2 34.5 k g/m2 [facility] Body weight 187.12 [lb_av] 187.12 [lb_av] [facility] T ([facility] Oxygen saturation in Arterial blood by Pulse oximetry 99 % 99 % [facility] [place] body weight 105 [lb_av] 105 [lb_av] [facility] T ([facility] Body height 61.75 [in_i] 61.75 [in_i] [facility] 5'1.75" Systolic blood pressure 142 mm[Hg] 142 mm[Hg] [...] [lb_av] [facility] T ([facility] [place] body weight 105 [lb_av] 105 [lb_av] [facility] ([facility] Body mass index (BMI) [Ratio] 34.2 kg/m2 34.2 k g/m2 [facility] Body mass index (BMI) [Ratio] 34.4 kg/m2 34.4 k g/m2 [facility] Systolic blood pressure 158 mm[Hg] 158 mm[Hg] M [facility] ([facility] Systolic blood pressure 142 mm[Hg] 142 mm[Hg] M [facility] ([facility] recheck Diastolic blood pressure 103 mm[Hg] 103 mm[Hg] [...] 99 % [facility] [place] body weight 105 [lb_av] 105 [lb_av] [facility] T ([facility]
[2021-08-12 23:13] LABS: BASO % 0.3 % (0.0-1.0); EOS % 0.1 % (0.0-3.0); HEMATOCRIT 37.5 % (36.0-47.0); HEMOGLOBIN 12.3 g/dl (12.0-15.5); LYMPH # 0.7 10^3/uL (1.5-5.0); LYMPH % 5.9 % (24.0-44.0); MEAN CORPUSCULAR HEMOGLOBIN 31.5 pg (27.0-33.0); MEAN CORPUSCULAR HGB CONC 32.8 g/dl (32.0-36.5); MEAN CORPUSCULAR VOLUME 95.9 fl (80.0-96.0); MONO % 8.1 % (2.0-8.0); NEUTROPHILS # 10.3 10^3/uL (1.5-8.5); NEUTROPHILS % 85.2 % (36.0-66.0); PLATELET COUNT, AUTOMATED 276 10^3/uL (150-450); RED BLOOD COUNT 3.91 10^6/uL (4.00-5.40); WHITE BLOOD COUNT 12.1 10^3/uL (4.0-10.0)
[2021-08-13] MEDS ORDERED: ceFAZolin SOD 2 GM in IV 1 EA IV ONE (00:05)
[2021-08-13] MEDS ORDERED: ONDANSETRON 4MG/2ML VIAL IV PRN (00:05)
--- OUTSIDE RECORDS SUMMARY | 2021-08-13 00:16 | CCD ---
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 If you continue you may have access to information: Regarding HIV / AIDS; Provided by facilities licensed or operated by the [facility] Office of Mental Health; or Provided by the [facility] Office for People With Developmental Disabilities. If such information is present, then the following [facility] mandated warning applies: This information has been [...] law may result in a fine or care home sentence or both. A general authorization for the release of medical or other information is NOT sufficient authorization for further disc losure. 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 Encounter Providers Location Date Indications Data [...] ONE-HALF TABLET FOR 4 DAYS SOLD: 07/09/2021 [facility] 300 mg 06/16/2021 12:00:00 AM EDT capsule 20 TAKE ONE CAPSULE BY MOUTH TWICE A DAY FOR 10 DAYS TAKE ONE CAPSULE BY MOUTH TWICE A DAY FOR 10 DAYS SOLD : 06/16/2021 [facility] cefdinir 300 MG Oral Capsule Cefdinir 06/16/2021 12:00:00 AM EDT ORAL completed [facility] 250 mg 06/08/2021 12:00:00 AM EDT tablet 6 TAKE TWO TABLETS BY MOUTH AT ONCE ON THE FIRST DAY THEN TAKE ONE DAILY THEREAFTER TAKE TWO TABLETS BY MOUTH AT ONCE ON THE FIRST DAY THEN TAKE ONE DAILY THEREAFTER SOLD: 06/08/2021 [facility] Azelastine HCL (Nasal) Azelastine HCL (Nasal) [...] type / Coverage type Policy ID Covered constitution party ID Covered constitution party's relationship to redding Policy Redding Plan Information [facility] [id number] 2 [id number] [place]/307 [id number] SP [id number] SELF PAY ONLY [id number] SP [id number] [facility] [id number] S [id number] [facility] UNAVAILABLE P UNAV AILABLE r Commercial [id number] [facility] D[facility] [id number] [facility] [id number] Family Dependent [id number] r Commercial [id number] Family Dependent [id number] [employer] 304/804 [id number] [employer] BCBS B [id number] S YND [id number] [employer] BCBS B [id number] P ZW [id number] BS Of [facility] [place] [place] [id number] Family Dependent [id number] BS [facility] [place] [id number] Family Dependent BS Of [facility] [place] [place] [id number] Family Dependent BC[place] 304/804 [id number] NO FAULT [id number] SP [id number] BCBS [place] 304/804 [id number] [facility] [id number] Problems, Conditions, and Diagnoses No Information Surgeries/Procedures Procedure Description Date Indications Data Source(s) OFFICE OUTPATIENT VISIT 15 MINUTES 07/09/2021 12:00:00 AM EDT [facility] OFFICE OUTPATIENT VISIT 15 MINUTES 06/16/2021 12:00:00 AM EDT [facility] ([facility] OFFICE OUTPATIENT VISIT 25 MINUTES 12/31/2020 12:00:00 AM EDT [facility] Results ID Date Data Source [id number] 12/18/2020 01:45:00 PM EDT [facility] Name Value Range Interpretation Code Description Data Dorothy rce(s) Supporting Document(s) Thyrotropin [Units/volume] in Serum or Plasma 2.210 uIU/mL 0.450-4.50 0 [facility] ID Date Data Source [id number] 12/18/2020 01:45:00 PM EDT [facility] ([facility]icha Segura [...] Colton, [facility] ID Date Data Source [id number] 12/18/2020 01:45:00 PM EDT [facility] ([facility]a Segura [...] [facility] ID Date Data Source [id number] 12/18/2020 01:45:00 PM EDT [facility] Name Value Range Interpretation Code Description Data Dorothy rce(s) Supporting Document(s) Leukocytes [#/volume] in Blood by Automated count 7.0 x10E3/uL 3.4-10 .8 [facility] Hematocrit [Volume Fraction] of Blood by Automated count 43.1 % 3 4.0-46.6 [facility] Hemoglobin [Mass/volume] in Blood 13.6 g/dL 11.1-15.9 [facility] ([facility] Erythrocytes [#/volume] in Blood by [...] [facility] ID Date Data Source [id number] 12/19/2020 06:06:00 AM EDT [facility] Name Value [...] 0.0-0.1 [facility] ID Date Data Source [id number] 12/19/2020 07:05:00 AM EDT [facility] Name Value [...] IU/L 0-32 [facility] ID Date Data Source [id number] 12/19/2020 07:05:00 AM EDT [facility] Name Value Range Interpretation Code Description Data Dorothy rce(s) Supporting Document(s) Cholesterol, Total 223 mg/dL 100-199 Above high normal [facility] [place] Triglycerides 110 mg/dL 0-149 [facility] HDL Cholesterol 73 mg/dL >39 [facility] VLDL Cholesterol [place] 19 mg/dL 5-40 [facility] LDL Chol Calc (NIH) 131 mg/dL 0-99 Above high normal [facility] ID Date Data Source [id number] 12/19/2020 07:05:00 AM EDT [facility] Name Value [...] 98 % [facility] [place] body weight 105 [lb_av] 105 [lb_av] [facility] ([facility] Body mass index (BMI) [Ratio] 35.1 kg/m2 35.1 k g/m2 [facility] Systolic blood pressure 166 mm[Hg] 166 mm[Hg] M [facility] ([facility] Heart rate 65 /min 65 /min [facility] Body weight 187.12 [lb_av] 187.12 [lb_av] [facility] T ([facility] Body mass index (BMI) [Ratio] 34.5 kg/m2 34.5 k g/m2 [facility] [place] body weight 105 [lb_av] 105 [lb_av] [facility] ([facility] Oxygen saturation in Arterial blood by Pulse oximetry 99 % 99 % [facility] Body height [...] 96.8 [degF] [facility] Heart rate 71 /min 71 /min [facility] Respiratory rate 14 /min 14 /min [facility] ( [facility] Body height 61.75 [in_i] 61.75 [in_i] [facility] 5'1.75" Systolic blood pressure 127 mm[Hg] 127 mm[Hg] M [facility] ([facility] Diastolic blood pressure 84 mm[Hg] 84 mm[Hg] [facility] Body weight 185.38 [lb_av] 185.38 [lb_av] [facility] T ([facility] [place] body weight 105 [lb_av] 105 [lb_av] MED[facility] [...] 103 mm[Hg] [facility] Systolic blood pressure 142 mm[Hg] 142 mm[Hg] M [facility] ([facility] recheck Diastolic blood pressure 89 mm[Hg] 89 mm[Hg] [...] 99 % [facility] [place] body weight 105 [lb_av] 105 [lb_av] [facility] ([facility]
[2021-08-13] MEDS ORDERED: AZEL1SPR3 (00:34)
[2021-08-13] MEDS ORDERED: HOME MED LIST COMPLETE! XX SCH (00:35)
[2021-08-13] MEDS: PERCOCET 5MG/325MG TAB PO PRN ×4 (01:19→18:26)
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
[2021-08-13 02:07] LABS: RSV AMPLIFICATION NEGATIVE (NEGATIVE)
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
[2021-08-13] MEDS: KETOROLAC 30 MG/ML 1ML VIAL IV PRN ×4 (03:55→22:36)
[2021-08-13 05:43] VITALS: BP 128/79
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
--- NOTE | 2021-08-13 20:55 | ECGEPIP ---
[facility] Test Date: 2021-08-13 Pat Name: CHELSIE HENRIQUEZ Department: Room: [place] [address] Gender: Female Transmissions Systems Operator: GIO : 1965 Requested By: JESSICA Chow Order Number: [id number] Reading MD: Bird Agudelo Measurements Intervals [place] Rate: 81 P: 42 LA: 186 QRS: 44 QRSD: 96 T: 56 QT: 396 QTc: 460 Interpretive Statements Normal sinus rhythm Cannot rule out Anterior infarct , age undetermined Nonspecific ST-T abnormalities Electronically Signed on 08-13-2021 20:55:37 EST by Bird Agudelo
[2021-08-13 22:00] VITALS: BP 124/76
[2021-08-14] MEDS: PERCOCET 5MG/325MG TAB PO PRN ×3 (01:10→18:02)
[2021-08-14] MEDS: KETOROLAC 30 MG/ML 1ML VIAL IV PRN ×3 (05:52→21:36)
[2021-08-14 06:00] VITALS: BP 122/69
--- NOTE | 2021-08-14 10:50 | IPN ---
PROGRESS NOTE DATE: 08/14/2021 SUBJECTIVE: The patient is stable with her medical issues at this time. From an orthopedic standpoint she is still having some difficulty getting around. OBJECTIVE: Her vitals have been stable. I's and O's have been good. She has been tolerating regular diet, really having adequate pain control with pain medication although she tried to get away with not taking too much pain medication this morning and now is much more sore and achy. She had difficulty with one person transfer bedside commode and still seems as though she is not ready for discharge at this time. It appears that she has plans for operative intervention of her left ankle fracture on of this week. IMPRESSION/PLAN: 1. Rehab - at this point she continues to make some slow but progressive improvement and I anticipate that she will probably be ready for discharge on Tuesday/Tuesday morning; we will see how she does over the next 24-48 hours. 2. Orthopedic issues stable fracture and will need to continue working with physical therapy for transfer/position issues, etc over the ensuing 24-48 hours as well.
[2021-08-14 14:10] VITALS: BP 144/93
[2021-08-14 22:00] VITALS: BP 130/86
[2021-08-15] MEDS: PERCOCET 5MG/325MG TAB PO PRN ×5 (00:52→22:38)
[2021-08-15] MEDS: KETOROLAC 30 MG/ML 1ML VIAL IV PRN ×5 (05:21→21:38)
[2021-08-15 06:00] VITALS: BP 150/90
--- NOTE | 2021-08-15 10:20 | IPNPDOC ---
Text Note Date of Service The patient was seen on 08/15/21. NOTE PID #3 Patient reports that pain in shoulder persists but is improving. Out of the sling and moving elbow now. Limited mobility secondary to left ankle fracture and right shoulder soft tissue injury. Patient would like to sit up in a chair for a few minutes each day. Grossly nvi to left foot and ankle re: sensation to exposed skin and moving toes. Cap refill <3 seconds. Plan for surgery on Tuesday. Given patient's limited mobility / 2 person assist and activity, consider holding discharge on Tuesday or Tuesday. Discussed with Trauma team and they are in agreement. VS,Fishbone, I+O VS, Fishbone, I+O Vital Signs Date Time Temp Pulse Resp B/P (MAP) Pulse Ox O2 Delivery O2 Flow Rate FiO2 08/15/21 06:00 98.2 78 20 150/90 (110) 98 Room Air I&O- Last 24 Hours up to 6 AM 08/15/21 06:00 Intake Total 1590 ml Output Total 200 ml Balance 1390 ml LETICIA QUIROS MD Aug 15, 2021 10:20
--- NOTE | 2021-08-15 12:02 | IPN ---
PROGRESS NOTE DATE: 08/15/2021 SUBJECTIVE: The patient seems to be stable at this time. Her orthopedic issues still are paramount. She still has difficulty getting out of bed and she needs at least one person and almost two person assist to do this. In general, otherwise her general surgical issues are stable no, fevers, no chills, no GI complaints, no respiratory complaints and making some slow but progressive improvements. PLAN: Will continue with rehabilitation/increasing her activity over the next 24-48 hours and will see if she is able to be ambulated enough to be discharged home but I anticipate with her slow progression that I am seeing that it may be not until postoperatively from her ankle fracture that she will need to stick around for.
[2021-08-15 14:00] VITALS: BP 147/88
[2021-08-15 21:46] VITALS: BP 152/85
[2021-08-16] MEDS: KETOROLAC 30 MG/ML 1ML VIAL IV PRN ×4 (01:42→23:43)
[2021-08-16] MEDS: PERCOCET 5MG/325MG TAB PO PRN ×4 (05:29→21:05)
[2021-08-16 06:00] VITALS: BP 150/80
[2021-08-16] MEDS: DOCUSATE SODIUM 100MG CAPSULE PO SCH ×2 (12:00→21:04)
--- NOTE | 2021-08-16 12:09 | IPN ---
PROGRESS NOTE DATE: 08/16/2021 SUBJECTIVE: Patient seems to be doing well. Slowly getting more active and moving around a little bit more. She has had no nausea, no vomiting, tolerating her diet and has had adequate oral pain medications with some minimal oral pain medications at this point. She states that she might have overdone it yesterday with getting up and is much more sore today, but actually, she seems to be moving around a little bit better than she had been previously. IMPRESSION/PLAN: Patient with slow but progressive improvement from a rehabilitation standpoint and I still think it looks as though it may be a couple of days before we get her adequately mobile to be discharged and this might coincide with the date of her discharge/operative intervention for her left ankle, which is Tuesday (planned). Thus we will see how she does. If she is able to well with the operative intervention, either being discharged later on Tuesday or possibly Tuesday morning, as appropriate.
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
[2021-08-16 14:00] VITALS: BP 132/75
[2021-08-16 21:50] VITALS: BP 132/77
[2021-08-17] MEDS: PERCOCET 5MG/325MG TAB PO PRN ×5 (02:55→22:14)
[2021-08-17 06:00] VITALS: BP 116/69
[2021-08-17] MEDS: ENOXAPARIN 40MG/0.4ML SYRINGE (J1650 PER 10MG) SC SCH (09:00)
[2021-08-17] MEDS: DOCUSATE SODIUM 100MG CAPSULE PO SCH ×2 (09:39→21:18)
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
[2021-08-17] MEDS: KETOROLAC 30 MG/ML 1ML VIAL IV SCH ×3 (10:11→21:18)
[2021-08-17 14:00] VITALS: BP 120/93
[2021-08-17 14:07] LABS: BASO # 0.1 10^3/uL (0.0-0.2); BASO % 0.7 % (0.0-1.0); EOS # 0.2 10^3/uL (0.0-0.5); EOS % 2.4 % (0.0-3.0); HEMATOCRIT 36.5 % (36.0-47.0); HEMOGLOBIN 11.9 g/dl (12.0-15.5); LYMPH # 1.8 10^3/uL (1.5-5.0); LYMPH % 21.4 % (24.0-44.0); MEAN CORPUSCULAR HEMOGLOBIN 31.7 pg (27.0-33.0); MEAN CORPUSCULAR HGB CONC 32.6 g/dl (32.0-36.5); MEAN CORPUSCULAR VOLUME 97.3 fl (80.0-96.0); MONO # 0.5 10^3/uL (0.0-0.8); MONO % 5.8 % (2.0-8.0); NEUTROPHILS # 5.7 10^3/uL (1.5-8.5); NEUTROPHILS % 68.6 % (36.0-66.0); PLATELET COUNT, AUTOMATED 237 10^3/uL (150-450); RED BLOOD COUNT 3.75 10^6/uL (4.00-5.40); WHITE BLOOD COUNT 8.3 10^3/uL (4.0-10.0)
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
[2021-08-17 14:59] LABS: ALT/SGPT 50 U/L (12-78); BILIRUBIN,TOTAL 0.6 MG/DL (0.2-1.0); BLOOD UREA NITROGEN 23 MG/DL (7-18); CALCIUM LEVEL 8.4 MG/DL (8.5-10.1); CARBON DIOXIDE LEVEL 23 MEQ/L (21-32); CHLORIDE LEVEL 105 MEQ/L (98-107); CREATININE FOR GFR 0.61 MG/DL (0.55-1.30); GLOMERULAR FILTRATION RATE > 60.0 (>51); GLUCOSE, FASTING 125 MG/DL (70-100); MAGNESIUM LEVEL 1.9 MG/DL (1.8-2.4); PHOSPHORUS LEVEL 3.3 MG/DL (2.5-4.9); POTASSIUM SERUM 4.7 MEQ/L (3.5-5.1); SODIUM LEVEL 138 MEQ/L (136-145); TOTAL PROTEIN 6.7 GM/DL (6.4-8.2)
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
[2021-08-17 20:20] VITALS: BP 126/85
[2021-08-18] VITALS (7 sets, daily range): BP systolic 125–144; BP diastolic 78–88
[2021-08-18] MEDS: KETOROLAC 30 MG/ML 1ML VIAL IV SCH ×4 (04:00→20:45)
[2021-08-18] MEDS: PERCOCET 5MG/325MG TAB PO PRN ×3 (04:00→20:46)
[2021-08-18 06:28] LABS: HEMATOCRIT 32.2 % (36.0-47.0); HEMOGLOBIN 10.6 g/dl (12.0-15.5); MEAN CORPUSCULAR HEMOGLOBIN 31.6 pg (27.0-33.0); MEAN CORPUSCULAR HGB CONC 32.9 g/dl (32.0-36.5); MEAN CORPUSCULAR VOLUME 96.1 fl (80.0-96.0); PLATELET COUNT, AUTOMATED 242 10^3/uL (150-450); RED BLOOD COUNT 3.35 10^6/uL (4.00-5.40); WHITE BLOOD COUNT 8.8 10^3/uL (4.0-10.0)
[2021-08-18 07:09] LABS: ALBUMIN 2.4 GM/DL (3.2-5.2); ALT/SGPT 43 U/L (12-78); BILIRUBIN,TOTAL 0.6 MG/DL (0.2-1.0); BLOOD UREA NITROGEN 23 MG/DL (7-18); CALCIUM LEVEL 8.2 MG/DL (8.5-10.1); CARBON DIOXIDE LEVEL 27 MEQ/L (21-32); CHLORIDE LEVEL 106 MEQ/L (98-107); CREATININE FOR GFR 0.57 MG/DL (0.55-1.30); GLOMERULAR FILTRATION RATE > 60.0 (>51); GLUCOSE, FASTING 90 MG/DL (70-100); MAGNESIUM LEVEL 2.3 MG/DL (1.8-2.4); PHOSPHORUS LEVEL 3.3 MG/DL (2.5-4.9); POTASSIUM SERUM 4.1 MEQ/L (3.5-5.1); SODIUM LEVEL 137 MEQ/L (136-145); TOTAL PROTEIN 6.1 GM/DL (6.4-8.2)
[2021-08-18] MEDS ORDERED: BUPIVACAINE/EPIN 0.5% 30 ML VIAL As Ordered ONE (07:54)
[2021-08-18] MEDS ORDERED: ceFAZolin 2 GM/D5W 50 ML IV BAG (J0690 PER 500MG) As Ordered ONE (08:23)
[2021-08-18] MEDS: ENOXAPARIN 40MG/0.4ML SYRINGE (J1650 PER 10MG) SC SCH (08:29)
[2021-08-18] MEDS: DOCUSATE SODIUM 100MG CAPSULE PO SCH ×2 (08:29→20:45)
[2021-08-18] MEDS ORDERED: ACETAMINOPHEN 1000MG 100ML IV BTL (OFIRMEV) (J0131 PER 10MG) As Ordered ONE (09:13)
[2021-08-18] MEDS ORDERED: fentaNYL 250 MCG/5 ML INJECTION (J3010) As Ordered ONE (09:13)
[2021-08-18] MEDS ORDERED: SUGAMMADEX SODIUM 500 MG/5 ML VIAL (BRIDION) As Ordered ONE (09:13)
[2021-08-18] MEDS ORDERED: ROCURONIUM BROMIDE 50 MG/5 ML VIAL As Ordered ONE (09:13)
[2021-08-18] MEDS ORDERED: METOCLOPRAMIDE INJ 10MG/2ML VIAL (J2765 PER 1) As Ordered ONE (09:13)
[2021-08-18] MEDS ORDERED: dexameTHASONE 4 MG/ML 1ML VIAL (J1100 PER 1MG) As Ordered ONE (09:13)
[2021-08-18] MEDS ORDERED: LIDOCAINE 2% 100MG/5ML SDV (FOR ANES.) As Ordered ONE (09:13)
[2021-08-18] MEDS ORDERED: MIDAZOLAM INJ 2MG/2ML VIAL (J2250 PER 1MG) As Ordered ONE (09:13)
[2021-08-18] MEDS ORDERED: ONDANSETRON 4MG/2ML VIAL As Ordered ONE (09:13)
[2021-08-18] MEDS ORDERED: propofoL 200 MG/20 ML VIAL As Ordered ONE (09:13)
[2021-08-18] MEDS ORDERED: ePHEDrine SULFATE 25 MG/5 ML(5MG/ML) SYRINGE As Ordered ONE (09:14)
[2021-08-18] MEDS ORDERED: HYDROmorphone HCL 2 MG/ML 1ML VIAL As Ordered ONE (09:31)
[2021-08-18] MEDS ORDERED: DESFLURANE 240 ML INHALANT As Ordered ONE (10:38)
--- NOTE | 2021-08-18 10:38 | REP ---
INDICATION: LEFT ANKLE FRACTURE. COMPARISON: None. TECHNIQUE: Intraoperative fluoroscopic imaging using portable C-arm technique. FINDINGS: Findings demonstrate satisfactory open reduction and fixation for distal fibular fracture. Total fluoroscopic time 34 seconds. IMPRESSION: Status post satisfactory open reduction and fixation. <Electronically signed by Ryan Ferrera > 08/18/21 [id number]
[2021-08-18] MEDS ORDERED: oxyCODONE 5MG TAB PO PRN (11:10)
[2021-08-18] MEDS ORDERED: MORPHINE 2 MG/ML 1ML VIAL (J2270) IV PRN (11:10)
[2021-08-18] MEDS ORDERED: LR 1,000 ML IV SCH ×2 (11:10→11:20)
[2021-08-18] MEDS ORDERED: METOCLOPRAMIDE INJ 10MG/2ML VIAL (J2765 PER 1) IV PRN (11:10)
[2021-08-18] MEDS ORDERED: fentaNYL 100 MCG/2 ML INJECTION (J3010) IV PRN (11:10)
[2021-08-18] MEDS ORDERED: ONDANSETRON 4MG/2ML VIAL IV PRN ×2 (11:10→11:20)
[2021-08-18] MEDS ORDERED: ACETAMINOPHEN TAB 650MG DOSE (2X325MG) PO PRN (11:20)
[2021-08-18] MEDS ORDERED: PERCOCET 5MG/325MG TAB PO PRN (11:20)
--- NOTE | 2021-08-18 11:58 | REP ---
INDICATION: POST OP IN PACU. COMPARISON: 08/13/2021 TECHNIQUE: Three views FINDINGS: Since the last examination the patient has undergone distal fibular ORIF with internal fixation plate and 7 affixing screws. The alignment is near anatomical. The mortise is intact. There is no evidence of an acute fracture. IMPRESSION: As above. <Electronically signed by Aaron Tang > 08/18/21 [id number]
[2021-08-18] MEDS: ASPIRIN 81MG ENTERIC TABLET PO SCH ×2 (13:52→20:46)
--- NOTE | 2021-08-18 14:16 | ROOPDOC ---
[facility] Report Of Operation Report of Operation DATE OF PROCEDURE: 08/18/21 PREPROCEDURE DIAGNOSES: Left ankle fracture bimalleolar equivalent and left knee pain with proximal fibula fracture; sternal fracture; ASIS avulsion fracture and right shoulder pain, soft tissue injury POSTPROCEDURE DIAGNOSES: Left ankle bimalleolar fracture, equivalent with deltoid ligament disruption and EUA of the left knee concerning for possible internal derangement PROCEDURE PERFORMED: Left ankle open reduction internal fixation with deltoid ligament repair; EUA of left knee; application of left leg splint SURGEON: Leticia Quiros MD MAGICIAN HELPER: Nancy Basurto PA-C ANESTHESIA: General anesthetic. ESTIMATED BLOOD LOSS: Approximately 25 mL. COMPLICATIONS: No known complication. REMARKS: Patient was seen and consented in the preoperative area for the left an kle open reduction internal fixation. The left leg was signed FINDINGS: The patient had significant bruising to the left knee. After her anesthetic was induced, I examined the patient's knee. Her medial collateral ligaments appear to be intact. The anterior cruciate ligament appeared to be intact based on Shira and pivot shift testing. Of note Apley and Iftikhar testing did suggest a popping sensation within the knee concerning for possible internal derangement, possibly a meniscal tear SPECIMENS REMOVED: None PROCEDURE NOTE: Tourniquet was inflated throughout the procedure 82 min, approx. Brian Variax plating system with locking and nonlocking screws DESCRIPTION OF PROCEDURE: The patient was brought to the operating room and a general anesthetic was induced after a surgical pause. She was then transferred to the operating room table. She was appropriately positioned. The splint to the left leg was removed. The leg was cleansed with a chlorhexidine scrub brush. A bone foam was used to support the left lower extremity. She was appropriately padded for the procedure on the radiolucent table. The left lower extremity underwent 2 times chlorhexidine prep. She underwent a sterile prep and drape and a tourniquet was applied to the left thigh. After a surgical safety checklist and pause was carried out, fluoroscopy was utilized to confirm the appropriate position of the level of the distal fibular fracture. This was marked appropriately with a skin marker. Anatomic landmarks including the distal fibula and medial malleolus were demarcated. An incision was made over the fibula extending approximately 12 cm or so. The superficial peroneal nerve was not encountered throughout the procedure. Once the skin and subcutaneous tissue had been move, the blade was taken down to bone and a periosteal elevator was used to elevate the soft tissues off the distal fibula. Sharp dissection was also used to aid with this process utilizing the scalpel. Any bleeders were controlled with electrocautery. The fracture site was identified and this was opened up and Adson's were used to clean out the clot and other material there. This was irrigated with a bulb syringe. The fracture was then aligned. This was an impaction type fracture so there were some small bony fragments. Given the nature of the fracture a lag screw technique would not be utilized successfully, so the decision was made to use a locking plate for the distal fibula. An appropriate plate was chosen that would secure at least 3 cortices above the fracture site. This was placed in position and contoured appropriately. This was held in place with 2 pins, one proximal and one distal to the fracture site. This was after the fracture had been appropriately reduced based on inspection. This was confirmed with AP and lateral fluoroscopic imaging. The plate was repositioned to avoid being too anteriorly at the proximal end. Once it was repositioned it was found to be satisfactory. A distal nonlocking screw, bicortical was placed followed by one proximal to the fracture site to secure the plate to the bone. Distal locking screws were placed in the 3 distal holes at the lateral malleoli region. A locking screw was also placed proximal to the fracture and the remainder was performed with bicortical screws. Each were drilled and measured prior to placing the screw. The proximal bicortical screw was replaced with a locking s crew as it did not have good bite. Positioning of the screws and plate was confirmed on AP and lateral fluoroscopy. Under live fluoroscopic viewing the fibula was tested for any syndesmotic injury. It was noted that there was medial opening associated with valgus angulation of the foot under fluoroscopy. The decision was made to open the medial aspect and address the ruptured deltoid ligament. The skin incision was made down through skin and subcutaneous tissue. The ruptured deltoid ligament was quite apparent. This was cleaned out of the area distal to the medial malleolus. This area was irrigated as well with bulb syringe normal sterile saline. Size 0 nonabsorbable suture was utilized to repair this ligament with 3 interrupted sutures holding appropriate tension on the soft tissue repair. Suture tails were trimmed with the scalpel. This was irrigated. Both of the wounds were irrigated and interrupted two-point 0 Vicryl sutures were placed in an interrupted fashion followed by running three-point 0 Monocryl suture. An interrupted suture was placed at the proximal end of the medial incision to close down a small scabbed area of the incision. Local anesthetic Marcaine with 0.5% was injected both prior to the incisions and after. Mastisol and Steri-Strips were applied followed by Telfa dressing ABD dressing web roll and the application of a splint in a back slab and sugar tong. The patient will be nonweightbearing to left lower extremity. Based on the popping sensation within her knee an MRI will be ordered of her left knee. This will be either completed as an inpatient or outpatient depending on her discharge date. Given the patient's multiple injuries she may require acute rehabilitation. The patient has been transferred from the trauma service to the hospitalist service, [facility]. LETICIA QUIROS MD Aug 18, 2021 14:16
[2021-08-18] MEDS: ceFAZolin SOD 2 GM in IV 1 EA IV SCH (16:44)
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
[2021-08-19] MEDS: ceFAZolin SOD 2 GM in IV 1 EA IV SCH (01:58)
[2021-08-19] MEDS: KETOROLAC 30 MG/ML 1ML VIAL IV SCH (04:00)
[2021-08-19 06:00] VITALS: BP 127/82
[2021-08-19 06:16] LABS: HEMATOCRIT 30.3 % (36.0-47.0); MEAN CORPUSCULAR HEMOGLOBIN 31.5 pg (27.0-33.0); MEAN CORPUSCULAR VOLUME 95.6 fl (80.0-96.0); PLATELET COUNT, AUTOMATED 272 10^3/uL (150-450); RED BLOOD COUNT 3.17 10^6/uL (4.00-5.40); WHITE BLOOD COUNT 11.2 10^3/uL (4.0-10.0)
[2021-08-19] MEDS: KETOROLAC TROMETHAMINE 10 MG TAB PO SCH ×2 (06:19→13:07)
[2021-08-19 06:40] LABS: BLOOD UREA NITROGEN 15 MG/DL (7-18); CALCIUM LEVEL 8.5 MG/DL (8.5-10.1); CARBON DIOXIDE LEVEL 25 MEQ/L (21-32); CHLORIDE LEVEL 108 MEQ/L (98-107); CREATININE FOR GFR 0.57 MG/DL (0.55-1.30); GLOMERULAR FILTRATION RATE > 60.0 (>51); GLUCOSE, FASTING 98 MG/DL (70-100); POTASSIUM SERUM 4.2 MEQ/L (3.5-5.1); SODIUM LEVEL 140 MEQ/L (136-145)
--- NOTE | 2021-08-19 08:27 | IPNPDOC ---
Text Note Date of Service The patient was seen on 08/19/21. NOTE Postop day 1 left ankle fracture Patient states that she has been doing reasonably well overnight. She is not complaining of any significant pain or otherwise. She reports that she did have her MRI of her left knee performed yesterday. Patient occasionally gets some medially based pain when her pain medications are starting to wear off. The left splint to the foot and ankle is still in position. The patient is able to move her toes although this is somewhat uncomfortable. She appears to have warm pink toes and a good cap refill. MRI left knee demonstrated: IMPRESSION: 1. Acute nondisplaced subchondral fractures involving the posterolateral portion of the left medial tibial plateau and anterior portion of the left lateral tibial plateau, without depression of the articular surfaces. 2. Acute mildly displaced oblique fracture involving the head, neck, and proximal metaphysis of the left fibula. 3. Focal grade 3 fissuring of the articular cartilage of the central weight-bearing surface of the left medial femoral condyle. 4. Grade 3-4 cartilage loss involving the medial facets of the patella and trochlea and grade 3 cartilage loss involving the lateral facet of the patella. 5. Grade 1 left medial collateral ligament sprain. 6. Grade 1 strains of the left biceps femoris, tibialis anterior, tibialis posterior, extensor digitorum longus, peroneus brevis, peroneus longus, popliteus, and soleus muscles. X-ray imaging taken in the PACU of the left ankle demonstrates the well fixed hardware and stable open reduction internal fixation of the left ankle Overall the patient is doing quite well. With regards to her left undisplaced tibial plateau fracture, she will remain nonweightbearing with her ankle fracture as well. Slow she is nonweightbearing, I do not believe that she will need anything like a knee immobilizer. I did test her ligament stability in terms of the MCL in the operating room yesterday and it did not appear to be lax. This will be treated conservatively. Patient will continue to work with physical therapy and mobilize nonweightbearing to left lower extremity. She'll be seen in the office for follow-up in approximately 2 weeks time. Pain medication will be oxycodone. She should have a stool softener for discharge as well as baby aspirin 81 mg p.o. twice daily for 2 weeks for DVT prophylaxis. Given the patient's other injuries she may require rehabilitation. VS,Fishbone, I+O VS, Fishbone, I+O Laboratory Tests 08/19/21 05:50 Vital Signs Date Time Temp Pulse Resp B/P (MAP) Pulse Ox O2 Delivery O2 Flow Rate FiO2 08/19/21 06:00 97.6 77 20 127/82 (97) 99 Room Air 08/18/21 12:00 2.0 I&O- Last 24 Hours up to 6 AM 08/19/21 06:00 Intake Total 1920 ml Output Total 25 ml Balance 1895 ml LETICIA QUIROS MD Aug 19, 2021 08:27
[2021-08-19] MEDS ORDERED: PANTOPRAZOLE 20 MG TAB PO SCH (09:00)
[2021-08-19] MEDS: ENOXAPARIN 40MG/0.4ML SYRINGE (J1650 PER 10MG) SC SCH (09:00)
[2021-08-19] MEDS: PERCOCET 5MG/325MG TAB PO PRN ×2 (10:10→16:14)
[2021-08-19] MEDS: ASPIRIN 81MG ENTERIC TABLET PO SCH (10:45)
[2021-08-19] MEDS: DOCUSATE SODIUM 100MG CAPSULE PO SCH (10:46)
[2021-08-19 14:00] VITALS: BP 128/80
[2021-08-19] MEDS ORDERED: QC A650T3 PO (15:11)
[2021-08-19] MEDS ORDERED: PERCOCET PO (15:11)
[2021-08-19] MEDS ORDERED: ASPI-551 PO (15:11)
[2021-08-19] MEDS ORDERED: COLA100C5 PO (15:11)
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
== END 2021-08-19 16:30 | disposition home health service (06) | DRG 912 ==
LOC: M ED 19:36 → M ED INP 19:37 → ENRESERV 08-13 03:06 → M MS5PR 08-13 04:44 → OBSVTOIN 08-18 09:36
PROVIDERS: ADMIT Surgery; ATTEND Internal Medicine
PROC: 0MQR0ZZ Repair Left Ankle Bursa and Ligament, Open Approach (ICD-10-PCS; 2021-08-18)
PROC: 0QSK04Z Reposition Left Fibula with Internal Fixation Device, Open Approach (ICD-10-PCS; principal; 2021-08-18 08:30)
DX: S82.842A Displaced bimalleolar fracture of left lower leg, initial encounter for closed fracture (principal); S32.392A Other fracture of left ilium, initial encounter for closed fracture; S22.22XA Fracture of body of sternum, initial encounter for closed fracture; S82.402A Unspecified fracture of shaft of left fibula, initial encounter for closed fracture; S93.422A Sprain of deltoid ligament of left ankle, initial encounter; S83.412A Sprain of medial collateral ligament of left knee, initial encounter; V43.52XA Car driver injured in collision with other type car in traffic accident, initial encounter; S43.402A Unspecified sprain of left shoulder joint, initial encounter; Y99.8 Other external cause status; Y92.410 Unspecified street and highway as the place of occurrence of the external cause; Y93.89 Activity, other specified; Z20.822 Contact with and (suspected) exposure to COVID-19; Z88.2 Allergy status to sulfonamides

== ENCOUNTER 2021-08-23 17:25 | Emergency (ER) | payer OTHER ==
[~2021-08-23 17:25] MED LIST changes: +ASPI-551 PO; +AZEL1SPR3; +COLA100C5 PO; +PERCOCET PO; +QC A650T3 PO
--- OUTSIDE RECORDS SUMMARY | 2021-08-23 20:22 | CCD ---
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 If you continue you may have access to information: Regarding HIV / AIDS; Provided by facilities licensed or operated by the [facility] Office of Mental Health; or Provided by the [facility] Office for People With Developmental Disabilities. If such information is present, then the following [facility] mandated warning applies: This information has [...] law may result in a fine or mcfp sentence or both. A general authorization for the release of medical or other information is NOT sufficient authorization for further disc losure. 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) Encounters Encounter Providers Location Date Indications Data [...] Instructions Status Indications Reaction Description Data Source(s) 5-325 mg 08/19/2021 12:00:00 AM EST tablet 20 TAKE ONE TABLET BY MOUTH EVERY 6 HOURS NEEDED FOR MODERATE PAIN SCALE OF 5-7 MAXIMUM DAILY DOSE = 4 TABLETS TAKE ONE TABLET BY MOUTH EVERY 6 HOURS NEEDED FOR MODERATE PAIN SCALE OF 5-7 MAXIMUM DAILY DOSE = 4 TABLETS SOLD: 08/19/2021 [facility] Aspirin 81 MG Delayed Release Oral Tablet ASPIRIN 2020 12:00:00 AM EST tablet,delayed release (DR/EC) 28 TAKE ONE TABLET B Y MOUTH TWICE A DAY TAKE ONE TABLET BY MOUTH TWICE A DAY SOLD: 08/19/2021 [facility] 100 mg 08/19/2021 12:00:00 AM EST capsule 28 TAKE ONE CAPSULE BY MOUTH TWICE A DAY TAKE ONE CAPSULE BY MOUTH TWICE A DAY SOLD: 08/19/2021 [facility] Prednisone 10 MG Oral Tablet Prednisone 07/09/2021 12:00:00 AM EDT ORAL active [facility] 137 mcg (0.1 %) 07/09/2021 12:00:00 AM EDT aerosol,spray 30 SPRAY 2 SPRAYS IN EACH NOSTRIL TWO TIMES A DAY SPRAY 2 SPRAYS IN EACH NOSTRIL TWO TIMES A DAY SOLD: 07/09/2021 [facility] 10 mg 07/09/2021 12:00:00 AM EDT tablet [...] ONE-HALF TABLET FOR 4 DAYS SOLD: 07/09/2021 [facility] Azelastine HCL (Nasal) Azelastine HCL (Nasal) 07/09/2021 12:00:00 AM E DT active [facility] cefdinir 300 MG Oral Capsule Cefdinir 06/16/2021 12:00:00 AM EDT ORAL completed [facility] 300 mg 06/16/2021 12:00:00 AM EDT capsule 20 TAKE ONE CAPSULE BY MOUTH TWICE A DAY FOR 10 DAYS TAKE ONE CAPSULE BY MOUTH TWICE A DAY FOR 10 DAYS SOLD : 06/16/2021 [facility] 250 mg 06/08/2021 12:00:00 AM EDT tablet [...] THEN TAKE ONE DAILY THEREAFTER SOLD: 08/02/2020 [facility] Insurance Providers Payer name Policy type / Coverage type Policy ID Covered alliance party ID Covered alliance party's relationship to redding Policy [place] Plan Information [facility] [id number] [place] PPO 302/307 [id number] SP [id number] SELF PAY ONLY [id number] SP [id number] [place] O [id number] S [id number] [facility] O UNAVAILABLE P UNAV AILABLE r Commercial [id number] Family Dependent [id number] [facility] B [id number] Family Dependent [id number] r Commercial [id number] Family Dependent [id number] [employer] [place] 304/804 [id number] HU2 [id number] [place] BCBS B [id number] S [id number] [employer] B [id number] P [id number] [id number] [facility] [place] [place] [id number] Family Dependent [id number] [facility] [place] [place] [id number] Family Dependent [facility] ([facility] [place] [id number] Family Dependent BCBS [place] 304/804 [id number] [place] [id number] [facility] NO FAULT [id number] SP [id number] BCBS [place] 304/804 [id number] [place] [id number] [facility] [id number] SP [id number] Problems, Conditions, and Diagnoses No Information Surgeries/Procedures Procedure Description Date Indications Data Source(s) OFFICE OUTPATIENT VISIT 15 MINUTES 07/09/2021 12:00:00 AM EDT [facility] OFFICE OUTPATIENT VISIT 15 MINUTES 06/16/2021 12:00:00 AM EDT [facility] OFFICE OUTPATIENT VISIT 25 MINUTES 12/31/2020 12:00:00 AM EDT [facility] Results ID Date Data Source [id number] 08/13/2021 12:19:00 AM EST [facility] Name Value Range Interpretation Code Description Data Dorothy rce(s) Supporting Document(s) SARS coronavirus 2 RNA [Presence] in Res piratory specimen by ADELAIDA with probe detection NEGATIVE [facility] This lab was ordered by [facility] a nd reported by [facility]. ID Date Data Source [id number] 12/18/2020 01:45:00 PM EDT [facility] Name Value Range Interpretation Code Description Data Dorothy rce(s) Supporting Document(s) Thyrotropin [Units/volume] in Serum or Plasma 2.210 uIU/mL 0.450-4.50 0 [facility] ID Date Data Source [id number] 12/18/2020 01:45:00 PM EDT [facility] Name Value Range Interpretation Code [...] [facility] ID Date Data Source [id number] 12/18/2020 01:45:00 PM EDT [facility] ([facility] Segura [...] [facility] ID Date Data Source [id number] 12/18/2020 01:45:00 PM EDT [facility] ([facility]a Segura [...] [facility] ID Date Data Source [id number] 12/19/2020 06:06:00 AM EDT [facility] Name Value [...] 0.0-0.1 [facility] ID Date Data Source [id number] 12/19/2020 07:05:00 AM EDT [facility] Name Value [...] IU/L 0-32 [facility] ID Date Data Source [id number] 12/19/2020 07:05:00 AM EDT [facility] Name Value Range Interpretation Code Description Data Dorothy rce(s) Supporting Document(s) Cholesterol, Total 223 mg/dL 100-199 Above high normal [facility] [place] Triglycerides 110 mg/dL 0-149 [facility] HDL Cholesterol 73 mg/dL >39 [facility] VLDL Cholesterol [place] 19 mg/dL 5-40 [facility] LDL Chol Calc (NIH) 131 mg/dL 0-99 Above high normal [facility] ID Date Data Source [id number] 12/19/2020 07:05:00 AM EDT [facility] Name Value [...] 98 % [facility] [place] body weight 105 [lb_av] 105 [lb_av] MED[facility] [...] 99 % [facility] [place] body weight 105 [lb_av] 105 [lb_av] MED[facility] [...] rate 71 /min 71 /min [facility] Systolic blood pressure 127 mm[Hg] 127 mm[Hg] M [facility] ([facility] Diastolic blood pressure 84 mm[Hg] 84 mm[Hg] [facility] Body weight 185.38 [lb_av] 185.38 [lb_av] [facility] ([facility] [place] body weight 105 [lb_av] 105 [lb_av] MED[facility] [...] 99 % [facility] [place] body weight 105 [lb_av] 105 [lb_av] [facility] T ([facility]
[2021-08-23 20:23] LABS: BASO # 0.1 10^3/uL (0.0-0.2); BASO % 0.8 % (0.0-1.0); EOS # 0.3 10^3/uL (0.0-0.5); EOS % 2.5 % (0.0-3.0); HEMOGLOBIN 11.7 g/dl (12.0-15.5); MEAN CORPUSCULAR HEMOGLOBIN 31.9 pg (27.0-33.0); MEAN CORPUSCULAR HGB CONC 31.6 g/dl (32.0-36.5); MEAN CORPUSCULAR VOLUME 100.8 fl (80.0-96.0); MONO # 0.8 10^3/uL (0.0-0.8); MONO % 6.7 % (2.0-8.0); NEUTROPHILS # 8.4 10^3/uL (1.5-8.5); PLATELET COUNT, AUTOMATED 337 10^3/uL (150-450); RED BLOOD COUNT 3.67 10^6/uL (4.00-5.40); WHITE BLOOD COUNT 11.8 10^3/uL (4.0-10.0)
[2021-08-23 20:47] LABS: BLOOD UREA NITROGEN 20 MG/DL (7-18); CALCIUM LEVEL 8.4 MG/DL (8.5-10.1); CARBON DIOXIDE LEVEL 24 MEQ/L (21-32); CHLORIDE LEVEL 107 MEQ/L (98-107); CREATININE FOR GFR 0.68 MG/DL (0.55-1.30); GLOMERULAR FILTRATION RATE > 60.0 (>51); GLUCOSE, FASTING 98 MG/DL (70-100); POTASSIUM SERUM 4.4 MEQ/L (3.5-5.1); SODIUM LEVEL 139 MEQ/L (136-145)
--- NOTE | 2021-08-23 20:52 | REPVR ---
PROCEDURE INFORMATION: Exam: US Duplex Right Lower Extremity Veins, Limited Exam date and time: 08/23/2021 8:34 PM Age: 56 years old Clinical indication: Pain; Swelling (edema) of limb; Lower extremity, right; Leg, lower; Additional info: Post traumatic pain and swelling R/O dvt TECHNIQUE: Imaging protocol: Real-time Duplex ultrasound of the Right Lower Extremity with 2-D [place] scale, color Doppler flow and spectral waveform analysis with image documentation. Limited exam was focused on the right lower extremity veins. COMPARISON: CT ABD/PEL W/IV CONTRAST ONLY 08/12/2021 9:48 PM FINDINGS: Right deep veins: The common femoral and profundus vein demonstrate venous return. There is severe complete thrombosis of the proximal femoral vein and mid femoral vein. There is a large partial thrombus within the distal right femoral vein. Venous return is noted of the veins of the calf on the popliteal vein. Right superficial veins: There is venous return of the greater saphenous vein. Soft tissues: Marked soft tissue swelling. IMPRESSION: The study is positive for DVT on the right. Severe occlusive thrombus filling the proximal and mid femoral vein right leg. Large amount of nonocclusive thrombus filling the distal right femoral vein. Electronically signed by: Ruy Sanabria On 08/23/2021 20:52:12 PM
[2021-08-23] MEDS ORDERED: APIXABAN 5 MG TAB (ELIQUIS) PO ONE (21:35)
[2021-08-23] MEDS ORDERED: CEPHALEXIN 500 MG CAP PO ONE (21:35)
[2021-08-23] MEDS ORDERED: CEPH500C PO (22:26)
[2021-08-23] MEDS ORDERED: ELIQ5TAB PO (22:26)
[2021-08-23 22:48] VITALS: BP 134/85
--- NOTE | 2021-08-26 10:01 | ECGEPIP ---
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 Order Number: [id number] Reading MD: Bird Mariscal Measurements Intervals [place] Rate: 77 P: 43 MN: 192 QRS: 42 QRSD: 96 T: 38 QT: 406 QTc: 459 Interpretive Statements Normal sinus rhythm Normalized ST-T wave changes when compared to tracing done 08-13-21 Electronically Signed on 08-26-2021 10:01:39 EST by Bird Mariscal
== END 2021-08-23 22:49 | disposition home or self-care (01) ==
LOC: M ED 17:25
DX: I82.413 Acute embolism and thrombosis of femoral vein, bilateral (principal); L03.115 Cellulitis of right lower limb; Z88.2 Allergy status to sulfonamides; Z79.01 Long term (current) use of anticoagulants; Z79.899 Other long term (current) drug therapy

== ENCOUNTER → 2021-09-02 | Outpatient (CLI) | payer OTHER ==
[~2021-09-02] MED LIST changes: +CEPH500C PO; +ELIQ5TAB PO; +OXYC-517 PO
--- NOTE | 2021-09-02 14:30 | REP ---
INDICATION: LT KNEE FX LT ANKLE FX. COMPARISON: 08/18/2021 TECHNIQUE: AP, lateral, obliques views of the left ankle FINDINGS: Patient is again noted to be status post satisfactory open reduction and fixation for distal fibular fracture. IMPRESSION: Stable left fibular fracture fixation. <Electronically signed by Ryan Ferrera > 09/02/21 1551
--- NOTE | 2021-09-02 14:32 | REP ---
INDICATION: LT KNEE FX LT ANKLE FX. COMPARISON: 08/13/2021 TECHNIQUE: AP and lateral left knee FINDINGS: Oblique fracture of the proximal fibular metaphysis is again identified without significant callus formation or periosteal reaction noted. Knee joint appears stable. IMPRESSION: No significant change from prior examination. <Electronically signed by Ryan Ferrera > 09/02/21 0039
--- NOTE | 2021-09-02 16:15 | REP ---
INDICATION: PAIN. COMPARISON: None. TECHNIQUE: AP, lateral, oblique views of the right foot FINDINGS: Osseous structures, joint spaces, and surrounding soft tissues are essentially age-appropriate. No evidence for acute or healed injury. No overt arthritic degenerative changes. No subcutaneous emphysema or foreign body. IMPRESSION: Age-appropriate right foot radiograph series. No overt arthritic or pathologic findings by radiographic evaluation. <Electronically signed by Ryan Ferrera > 09/02/21 [id number]
--- NOTE | 2021-09-02 16:16 | REP ---
INDICATION: PAIN COMPARISON: None. TECHNIQUE: AP, lateral, bilateral oblique views. FINDINGS: No acute fracture or dislocation. Skeletal structures and joint spaces are intact and normal. Ankle mortise appears stable. No subcutaneous emphysema or radiodense foreign body. IMPRESSION: Normal right ankle radiograph series. <Electronically signed by Ryan Ferrera > 09/02/21 [id number]
--- NOTE | 2021-09-02 16:19 | REP ---
INDICATION: PAIN COMPARISON: None. TECHNIQUE: Internal rotation, external rotation, axillary and Y view. FINDINGS: No acute fracture or dislocation. The acromioclavicular and glenohumeral joints are intact. No periarticular calcifications or degenerative changes are appreciated. Sub acromial space is normal. Surrounding soft tissues are unremarkable. IMPRESSION: Normal age-appropriate right shoulder radiographs. <Electronically signed by Ryan Ferrera > 09/02/21 1448
== END ==
LOC: M SOG 13:18
PROVIDERS: ATTEND Orthopaedic Surgery Adult Reconstructive Orthopaedic Surgery
DX: S82.102A Unspecified fracture of upper end of left tibia, initial encounter for closed fracture (principal); S82.842A Displaced bimalleolar fracture of left lower leg, initial encounter for closed fracture; M25.511 Pain in right shoulder; M25.571 Pain in right ankle and joints of right foot; M79.671 Pain in right foot; W18.30XA Fall on same level, unspecified, initial encounter; Y92.009 Unspecified place in unspecified non-institutional (private) residence as the place of occurrence of the external cause

== ENCOUNTER → 2021-09-22 | Outpatient (CLI) | payer OTHER ==
--- NOTE | 2021-09-22 10:21 | REP ---
INDICATION: LT FOOT FX. COMPARISON: 09/02/2021 TECHNIQUE: AP, lateral, oblique views of the left foot FINDINGS: Status post satisfactory open reduction and fixation for distal fibular fracture. No new acute fracture or dislocation identified. No subcutaneous emphysema or foreign body. IMPRESSION: Satisfactory open reduction and fixation. <Electronically signed by Ryan Ferrera > 09/22/21 1018
--- NOTE | 2021-09-22 10:24 | REP ---
INDICATION: LT FOOT FX. COMPARISON: None. TECHNIQUE: AP, lateral, oblique views of the left ankle FINDINGS: Patient is status post satisfactory open reduction and fixation for distal fibular fracture. No acute fracture or dislocation. IMPRESSION: Satisfactory open reduction and fixation. <Electronically signed by Ryan Ferrera > 09/22/21 1027
== END ==
LOC: M SOG 08:38
PROVIDERS: ATTEND Orthopaedic Surgery Adult Reconstructive Orthopaedic Surgery
DX: S82.892A Other fracture of left lower leg, initial encounter for closed fracture (principal); M25.572 Pain in left ankle and joints of left foot; W18.30XA Fall on same level, unspecified, initial encounter; Y92.009 Unspecified place in unspecified non-institutional (private) residence as the place of occurrence of the external cause

== ENCOUNTER → 2021-10-14 | Outpatient (CLI) | payer OTHER | LOC: M SOG 08:09 | PROVIDERS: ATTEND Orthopaedic Surgery Adult Reconstructive Orthopaedic Surgery | DX: S82.102D Unspecified fracture of upper end of left tibia, subsequent encounter for closed fracture with routine healing (principal); S82.892D Other fracture of left lower leg, subsequent encounter for closed fracture with routine healing; W18.30XD Fall on same level, unspecified, subsequent encounter; Y92.009 Unspecified place in unspecified non-institutional (private) residence as the place of occurrence of the external cause ==

== ENCOUNTER → 2021-10-22 | Outpatient (CLI) | payer OTHER ==
[2021-10-22 15:30] LABS: HEMATOCRIT 42.2 % (36.0-47.0); HEMOGLOBIN 13.7 g/dl (12.0-15.5); MEAN CORPUSCULAR HEMOGLOBIN 31.1 pg (27.0-33.0); MEAN CORPUSCULAR HGB CONC 32.5 g/dl (32.0-36.5); MEAN CORPUSCULAR VOLUME 95.9 fl (80.0-96.0); PLATELET COUNT, AUTOMATED 312 10^3/uL (150-450); WHITE BLOOD COUNT 9.6 10^3/uL (4.0-10.0)
[2021-10-22 15:33] LABS: BLOOD UREA NITROGEN 17 MG/DL (7-18); CALCIUM LEVEL 9.6 MG/DL (8.5-10.1); CARBON DIOXIDE LEVEL 28 MEQ/L (21-32); CHLORIDE LEVEL 106 MEQ/L (98-107); CREATININE FOR GFR 0.64 MG/DL (0.55-1.30); GLOMERULAR FILTRATION RATE > 60.0 (>51); GLUCOSE, FASTING 88 MG/DL (70-100); POTASSIUM SERUM 4.5 MEQ/L (3.5-5.1); SODIUM LEVEL 137 MEQ/L (136-145)
[2021-10-22 15:40] LABS: INR 1.05; PROTHROMBIN TIME 14.1 SECONDS (12.7-14.5)
[2021-10-22 15:41] LABS: PARTIAL THROMBOPLASTIN TIME 33.6 SECONDS (25.9-37.0)
== END ==
LOC: M PLALAB 12:26
PROVIDERS: ATTEND Orthopaedic Surgery
DX: Z01.818 Encounter for other preprocedural examination (principal)

== ENCOUNTER → 2021-11-06 | Outpatient (CLI) | payer OTHER | LOC: M SOG 09:22 | PROVIDERS: ATTEND Orthopaedic Surgery Adult Reconstructive Orthopaedic Surgery | DX: M25.572 Pain in left ankle and joints of left foot (principal); M79.672 Pain in left foot ==

== ENCOUNTER → 2021-11-16 | Outpatient (RCR) | payer OTHER | LOC: M PT 09:00 | PROVIDERS: ATTEND Orthopaedic Surgery Adult Reconstructive Orthopaedic Surgery | DX: M25.572 Pain in left ankle and joints of left foot (principal) ==

== ENCOUNTER → 2021-12-17 | Outpatient (RCR) | payer OTHER | LOC: M PT 11-18 10:01 | PROVIDERS: ATTEND Orthopaedic Surgery Adult Reconstructive Orthopaedic Surgery | DX: Z98.890 Other specified postprocedural states (principal) ==

== ENCOUNTER 2022-01-14 09:10 | Outpatient (RCR) | payer OTHER | END 2022-01-16 | LOC: M PT 09:10 | PROVIDERS: ATTEND Orthopaedic Surgery Adult Reconstructive Orthopaedic Surgery | DX: Z79.890 Hormone replacement therapy (principal) ==

== ENCOUNTER → 2022-01-15 | Outpatient (CLI) | payer OTHER | LOC: M SOG 08:09 | PROVIDERS: ATTEND Orthopaedic Surgery Adult Reconstructive Orthopaedic Surgery | DX: S82.892D Other fracture of left lower leg, subsequent encounter for closed fracture with routine healing (principal); W18.30XD Fall on same level, unspecified, subsequent encounter ==

== ENCOUNTER → 2022-02-16 | Outpatient (RCR) | payer OTHER | LOC: M PT 01-19 09:12 | PROVIDERS: ATTEND Orthopaedic Surgery Adult Reconstructive Orthopaedic Surgery | DX: Z98.890 Other specified postprocedural states (principal) ==

== ENCOUNTER → 2022-03-18 | Outpatient (RCR) | payer OTHER | LOC: M PT 02-18 09:19 | PROVIDERS: ATTEND Orthopaedic Surgery Adult Reconstructive Orthopaedic Surgery | DX: Z98.890 Other specified postprocedural states (principal) ==

== ENCOUNTER → 2022-04-19 | Outpatient (CLI) | payer OTHER | LOC: M SOG 09:21 | PROVIDERS: ATTEND Orthopaedic Surgery Adult Reconstructive Orthopaedic Surgery | DX: S82.892D Other fracture of left lower leg, subsequent encounter for closed fracture with routine healing (principal); Z96.698 Presence of other orthopedic joint implants ==

== ENCOUNTER → 2022-04-26 | Outpatient (CLI) | payer OTHER ==
[2022-04-26 14:12] LABS: BASO # 0.1 10^3/uL (0.0-0.2); BASO % 0.9 % (0.0-1.0); EOS # 0.2 10^3/uL (0.0-0.5); EOS % 2.6 % (0.0-3.0); HEMATOCRIT 40.3 % (36.0-47.0); HEMOGLOBIN 12.8 g/dl (12.0-15.5); LYMPH # 1.8 10^3/uL (1.5-5.0); LYMPH % 31.3 % (24.0-44.0); MEAN CORPUSCULAR HEMOGLOBIN 30.8 pg (27.0-33.0); MEAN CORPUSCULAR HGB CONC 31.8 g/dl (32.0-36.5); MEAN CORPUSCULAR VOLUME 96.9 fl (80.0-96.0); MONO # 0.5 10^3/uL (0.0-0.8); MONO % 9.3 % (2.0-8.0); NEUTROPHILS # 3.2 10^3/uL (1.5-8.5); NEUTROPHILS % 55.6 % (36.0-66.0); PLATELET COUNT, AUTOMATED 307 10^3/uL (150-450); RED BLOOD COUNT 4.16 10^6/uL (4.00-5.40); WHITE BLOOD COUNT 5.8 10^3/uL (4.0-10.0)
[2022-04-26 16:06] LABS: BLOOD UREA NITROGEN 20 MG/DL (7-18); CARBON DIOXIDE LEVEL 29 MEQ/L (21-32); CHLORIDE LEVEL 105 MEQ/L (98-107); GLOMERULAR FILTRATION RATE > 60.0 (>51); GLUCOSE, FASTING 82 MG/DL (70-100); POTASSIUM SERUM 4.2 MEQ/L (3.5-5.1); SODIUM LEVEL 140 MEQ/L (136-145)
== END ==
LOC: M PLALAB 10:13
PROVIDERS: ATTEND Family Medicine
DX: Z01.818 Encounter for other preprocedural examination (principal)

== ENCOUNTER 2022-06-17 07:00 | Outpatient (RCR) | payer OTHER | END 2022-06-18 | LOC: M PT 07:00 | PROVIDERS: ATTEND Orthopaedic Surgery | DX: Z96.611 Presence of right artificial shoulder joint (principal) ==

== ENCOUNTER 2022-07-15 07:45 | Outpatient (RCR) | payer OTHER | END 2022-07-19 | LOC: M PT 07:45 | PROVIDERS: ATTEND Orthopaedic Surgery | DX: Z96.611 Presence of right artificial shoulder joint (principal) ==

== ENCOUNTER 2022-08-17 13:45 | Outpatient (RCR) | payer OTHER | END 2022-08-18 23:59 | disposition home or self-care (01) | LOC: M PT 13:45 | PROVIDERS: ATTEND Orthopaedic Surgery | DX: Z47.89 Encounter for other orthopedic aftercare (principal); Z96.611 Presence of right artificial shoulder joint ==

== ENCOUNTER 2022-09-15 07:45 | Outpatient (RCR) | payer OTHER | END 2022-09-18 | LOC: M PT 07:45 | PROVIDERS: ATTEND Orthopaedic Surgery | DX: Z47.89 Encounter for other orthopedic aftercare (principal); Z96.611 Presence of right artificial shoulder joint ==

== ENCOUNTER → 2022-10-19 | Outpatient (RCR) | payer OTHER | LOC: M PT 09-21 07:50 | PROVIDERS: ATTEND Orthopaedic Surgery | DX: Z96.611 Presence of right artificial shoulder joint (principal) ==

== ENCOUNTER → 2022-11-16 | Outpatient (RCR) | payer OTHER | LOC: M PT 10-26 07:53 | PROVIDERS: ATTEND Orthopaedic Surgery | DX: Z47.1 Aftercare following joint replacement surgery (principal); Z96.611 Presence of right artificial shoulder joint ==

== ENCOUNTER 2022-12-16 07:45 | Outpatient (RCR) | payer OTHER | END 2022-12-17 | LOC: M PT 07:45 | PROVIDERS: ATTEND Orthopaedic Surgery | DX: Z47.89 Encounter for other orthopedic aftercare (principal); Z96.611 Presence of right artificial shoulder joint ==

== ENCOUNTER → 2022-12-31 | Outpatient (CLI) | payer OTHER | LOC: M WHC 07:43 | PROVIDERS: ATTEND Nurse Practitioner Family | DX: Z12.31 Encounter for screening mammogram for malignant neoplasm of breast (principal) ==

== ENCOUNTER 2023-01-13 07:41 | Outpatient (RCR) | payer OTHER | END 2023-01-16 | LOC: M PT 07:41 | PROVIDERS: ATTEND Orthopaedic Surgery | DX: Z96.611 Presence of right artificial shoulder joint (principal) ==

== ENCOUNTER 2023-01-27 07:45 | Outpatient (RCR) | payer OTHER | END 2023-02-16 | LOC: M PT 07:45 | PROVIDERS: ATTEND Orthopaedic Surgery | DX: Z96.611 Presence of right artificial shoulder joint (principal) ==

== ENCOUNTER 2024-02-02 08:17 | Observation (INO) | payer OTHER ==
[~2024-02-02] VITALS: Ht 157.5 cm; Wt 81.8 kg
[2024-02-02] MEDS: LR 1,000 ML IV SCH ×2 (07:00→15:14)
[2024-02-02] MEDS ORDERED: APAP325T4 PO (08:55)
[2024-02-02] MEDS: MORPHINE 4 MG/ML 1ML VIAL IV ONE (09:03)
[2024-02-02] MEDS: ONDANSETRON 4MG 2ML VIAL IV ONE (09:04)
[2024-02-02] MEDS: KETOROLAC 30 MG/ML 1ML VIAL IV ONE (09:27)
[2024-02-02 09:54] LABS: BASO # 0.1 10^3/uL (0.0-0.2); BASO % 0.8 % (0.0-1.0); EOS # 0.2 10^3/uL (0.0-0.5); EOS % 3.4 % (0.0-3.0); HEMATOCRIT 38.9 % (36.0-47.0); HEMOGLOBIN 12.7 g/dl (12.0-15.5); LYMPH # 2.5 10^3/uL (1.5-5.0); LYMPH % 34.4 % (24.0-44.0); MEAN CORPUSCULAR HEMOGLOBIN 30.8 pg (27.0-33.0); MEAN CORPUSCULAR HGB CONC 32.6 g/dl (32.0-36.5); MEAN CORPUSCULAR VOLUME 94.2 fl (80.0-96.0); MONO # 0.5 10^3/uL (0.0-0.8); MONO % 7.4 % (2.0-8.0); NEUTROPHILS # 3.9 10^3/uL (1.5-8.5); NEUTROPHILS % 53.7 % (36.0-66.0); PLATELET COUNT, AUTOMATED 312 10^3/uL (150-450); RED BLOOD COUNT 4.13 10^6/uL (4.00-5.40); WHITE BLOOD COUNT 7.2 10^3/uL (4.0-10.0)
[2024-02-02 10:08] LABS: ALBUMIN 3.5 G/DL (3.2-5.2); ALKALINE PHOSPHATASE 60 U/L (46-116); ALT/SGPT 33 U/L (7.0-40); AST/SGOT 21 U/L (<34); BILIRUBIN,TOTAL 0.4 MG/DL (0.3-1.2); BLOOD UREA NITROGEN 22 MG/DL (9-23); CALCIUM LEVEL 9.1 MG/DL (8.5-10.1); CARBON DIOXIDE LEVEL 24 MMOL/L (20-31); CHLORIDE LEVEL 107 MMOL/L (98-107); CREATININE FOR GFR 0.67 MG/DL (0.55-1.30); GLOMERULAR FILTRATION RATE > 60.0 (>51); GLUCOSE, FASTING 150 MG/DL (60-100); MAGNESIUM LEVEL 1.5 MG/DL (1.8-2.4); SODIUM LEVEL 140 MMOL/L (136-145); TOTAL PROTEIN 6.6 G/DL (5.7-8.2)
[2024-02-02 10:09] LABS: INR 1.05; PROTHROMBIN TIME 13.3 SECONDS (12.5-14.5)
[2024-02-02] MEDS: NS 1,000 ML IV ONE (10:48)
[2024-02-02] MEDS ORDERED: HOME MED LIST COMPLETE! XX SCH (11:05)
[2024-02-02] MEDS ORDERED: ACETAMINOPHEN TAB 650MG DOSE (2X325MG) PO PRN ×2 (11:15→12:50)
[2024-02-02] MEDS ORDERED: MAALOX 30 ML SUSP *UDC PO PRN (11:15)
[2024-02-02] MEDS ORDERED: MOM 30ML SUSPENSION UDC PO PRN (11:15)
[2024-02-02] MEDS ORDERED: ONDANSETRON 4MG 2ML VIAL IV PRN ×2 (11:20→21:50)
[2024-02-02] MEDS: MORPHINE 4 MG/ML 1ML VIAL IV PRN (12:28)
[2024-02-02] MEDS ORDERED: ALPRAZolam 0.25 MG TAB PO PRN (12:50)
[2024-02-02] MEDS ORDERED: LIDOCAINE 2% 100MG/5ML SDV (FOR ANES.) As Ordered ONE (14:16)
[2024-02-02] MEDS ORDERED: ROCURONIUM BROMIDE 50MG/5ML VIAL As Ordered ONE (14:16)
[2024-02-02] MEDS ORDERED: propofoL 200 MG/20 ML VIAL As Ordered ONE (14:16)
[2024-02-02] MEDS ORDERED: ONDANSETRON 4MG 2ML VIAL As Ordered ONE (14:17)
[2024-02-02] MEDS ORDERED: dexmedeTOMIDine (4MCG/ML)200MCG/50ML BTL (PRECEDEX) As Ordered ONE (14:19)
[2024-02-02] MEDS ORDERED: ACETAMINOPHEN 1000MG 100ML IV BAG As Ordered ONE (14:21)
[2024-02-02] MEDS ORDERED: MIDAZOLAM INJ 2MG/2ML VIAL As Ordered ONE (15:23)
[2024-02-02] MEDS ORDERED: fentaNYL 100 MCG/2 ML INJECTION As Ordered ONE (15:23)
[2024-02-02] MEDS: fentaNYL 100 MCG/2 ML INJECTION IV PRN (16:15)
[2024-02-02] MEDS: MIDAZOLAM INJ 2MG/2ML VIAL IV PRN (16:15)
[2024-02-02] MEDS: EPINEPHrine INJ 1 MG/ML 1ML AMP PN ONE (17:09)
[2024-02-02] MEDS: ROPIvacaine 0.5% 30ML VIAL PN ONE (17:10)
[2024-02-02] MEDS: dexAMETHasone 10MG/1ML VIAL PRES.FREE PN ONE (17:10)
[2024-02-02] MEDS: LIDOCAINE 1% SDV 5ML VIAL PN ONE (17:10)
[2024-02-02] MEDS: ceFAZolin 2 GM/D5W 50 ML IV BAG As Ordered ONE (17:10)
[2024-02-02] MEDS: TRANEXAMIC ACID 100 MG/ML 10ML VIAL As Ordered ONE (17:38)
[2024-02-02] MEDS ORDERED: KETOROLAC 60MG 2ML VIAL As Ordered ONE (17:44)
[2024-02-02] MEDS ORDERED: SUGAMMADEX SODIUM 500 MG/5 ML VIAL (BRIDION) As Ordered ONE (17:44)
[2024-02-02] MEDS: ceFAZolin 1GM VIAL As Ordered ONE (18:00)
[2024-02-02] MEDS: VANCOMYCIN 1000MG/20ML VIAL As Ordered ONE (18:53)
[2024-02-02] MEDS: DOCUSATE SODIUM 100MG CAPSULE PO SCH (21:00)
[2024-02-02] MEDS ORDERED: HYDROmorphone HCL 2MG/ML 1ML VIAL As Ordered ONE (21:05)
[2024-02-02] MEDS ORDERED: METOCLOPRAMIDE INJ 10MG/2ML VIAL IV PRN (21:50)
[2024-02-02] MEDS ORDERED: fentaNYL 100 MCG/2 ML INJECTION IV PRN (21:50)
[2024-02-02] MEDS ORDERED: MORPHINE 2 MG/ML 1ML VIAL IV PRN (21:50)
[2024-02-02] MEDS ORDERED: oxyCODONE 5MG TAB PO PRN (22:45)
[2024-02-02 23:25] VITALS: BP 122/84; TEMP 96.6; O2SAT 99
[2024-02-03] VITALS (12 sets, daily range): BP systolic 91–138; BP diastolic 55–77; TEMP 97–98.8; O2SAT 93–98
[2024-02-03] MEDS: ceFAZolin SOD 2 GM in IV 1 EA IV SCH (04:58)
[2024-02-03 06:21] LABS: HEMATOCRIT 34.9 % (36.0-47.0); HEMOGLOBIN 11.5 g/dl (12.0-15.5); MEAN CORPUSCULAR HEMOGLOBIN 31.3 pg (27.0-33.0); MEAN CORPUSCULAR VOLUME 95.1 fl (80.0-96.0); PLATELET COUNT, AUTOMATED 260 10^3/uL (150-450); RED BLOOD COUNT 3.67 10^6/uL (4.00-5.40); WHITE BLOOD COUNT 11.9 10^3/uL (4.0-10.0)
[2024-02-03 06:46] LABS: BLOOD UREA NITROGEN 17 MG/DL (9-23); CALCIUM LEVEL 8.1 MG/DL (8.5-10.1); CARBON DIOXIDE LEVEL 26 MMOL/L (20-31); CHLORIDE LEVEL 109 MMOL/L (98-107); CREATININE FOR GFR 0.61 MG/DL (0.55-1.30); GLOMERULAR FILTRATION RATE > 60.0 (>51); GLUCOSE, FASTING 139 MG/DL (60-100); POTASSIUM SERUM 4.3 MMOL/L (3.5-5.1); SODIUM LEVEL 141 MMOL/L (136-145)
[2024-02-03] MEDS: ASPIRIN 81MG ENTERIC TABLET PO SCH (10:32)
[2024-02-03] MEDS: PERCOCET 5MG/325MG TAB PO PRN (14:18)
[2024-02-03 18:49] LABS: BILIRUBIN,DIRECT 0.1 MG/DL (<0.4); PHOSPHORUS LEVEL 3.1 MG/DL (2.5-4.9)
[2024-02-03 18:52] LABS: TOTAL 25(OH) VITAMIN D 13.3 NG/ML (20.0-100.0)
[2024-02-04 00:55] VITALS: TEMP 98.1
[2024-02-04 00:56] VITALS: BP 127/75; O2SAT 96
[2024-02-04 06:00] VITALS: BP 105/66; TEMP 98; O2SAT 96
[2024-02-04] MEDS: VITAMIN D 50,000 UNITS CAPSULE (ERGOCALCIFEROL 1.25MG) PO SCH (10:26)
[2024-02-04] MEDS: OYSTER SHELL CALCIUM 500 MG TAB PO SCH (10:26)
[2024-02-04] MEDS ORDERED: ASPI81TAEC PO (12:17)
[2024-02-04] MEDS ORDERED: CALCI50TA PO (12:17)
[2024-02-04] MEDS ORDERED: PERCOCET PO (12:17)
[2024-02-04] MEDS ORDERED: DRIS50003 PO (12:17)
== END 2024-02-04 13:05 | disposition home or self-care (01) ==
LOC: M ED 08:17 → M ED INP 11:14 → M MS5PR 12:00
PROVIDERS: ADMIT Preventive Medicine Undersea and Hyperbaric Medicine; ATTEND Preventive Medicine Undersea and Hyperbaric Medicine
DX: S82.841A Displaced bimalleolar fracture of right lower leg, initial encounter for closed fracture (principal); X50.1XXA Overexertion from prolonged static or awkward postures, initial encounter; Y92.89 Other specified places as the place of occurrence of the external cause; Y93.K1 Activity, walking an animal; Y99.8 Other external cause status; E55.9 Vitamin D deficiency, unspecified; Z88.2 Allergy status to sulfonamides; Z79.899 Other long term (current) drug therapy
CPT/HCPCS: 27814; 36415; 73590; 73610; 73700; 76000; 80048; 80053; 82248; 82306; 83735; 84100; 85025; 85027; 85610; 93005; 96361; 96374; 96375; 96376; 97116; 97161; 97530; 99285; C1713; C9290; J0131; J0665; J0690; J1100; J1170; J1885; J2250; J2405; J3010; J3370

== ENCOUNTER → 2024-02-16 | Outpatient (CLI) | payer OTHER ==
[~2024-02-16] MED LIST changes: +APAP325T4 PO; +ASPI81TAEC PO; +CALCI50TA PO; +DRIS50003 PO
== END ==
LOC: M SOG 08:03
PROVIDERS: ATTEND Physician Assistant
DX: S82.391A Other fracture of lower end of right tibia, initial encounter for closed fracture (principal)

== ENCOUNTER → 2024-03-15 | Outpatient (CLI) | payer OTHER | LOC: M SOG 08:05 | PROVIDERS: ATTEND Physician Assistant | DX: S82.391D Other fracture of lower end of right tibia, subsequent encounter for closed fracture with routine healing (principal); Y93.9 Activity, unspecified; Y92.9 Unspecified place or not applicable ==

== ENCOUNTER → 2024-05-16 | Outpatient (CLI) | payer OTHER | LOC: M PLALAB 10:07 | PROVIDERS: ATTEND Physician Assistant | DX: S82.391D Other fracture of lower end of right tibia, subsequent encounter for closed fracture with routine healing (principal); Y93.9 Activity, unspecified; Y92.9 Unspecified place or not applicable ==

== ENCOUNTER → 2024-06-14 | Outpatient (CLI) | payer OTHER | LOC: M SOG 07:19 | PROVIDERS: ATTEND Physician Assistant | DX: S82.391D Other fracture of lower end of right tibia, subsequent encounter for closed fracture with routine healing (principal) ==

== ENCOUNTER → 2024-09-27 | Outpatient (CLI) | payer OTHER | LOC: M SOG 07:57 | PROVIDERS: ATTEND Physician Assistant | DX: S82.391D Other fracture of lower end of right tibia, subsequent encounter for closed fracture with routine healing (principal) ==

== ENCOUNTER → 2024-11-20 | Outpatient (CLI) | payer OTHER ==
[2024-11-20 11:48] LABS: BASO # 0.1 10^3/uL (0.0-0.2); BASO % 0.8 % (0.0-1.0); EOS # 0.2 10^3/uL (0.0-0.5); EOS % 2.8 % (0.0-3.0); HEMATOCRIT 41.2 % (36.0-47.0); HEMOGLOBIN 13.5 g/dl (12.0-15.5); LYMPH # 2.2 10^3/uL (1.5-5.0); MEAN CORPUSCULAR HEMOGLOBIN 31.5 pg (27.0-33.0); MEAN CORPUSCULAR HGB CONC 32.8 g/dl (32.0-36.5); MONO # 0.6 10^3/uL (0.0-0.8); MONO % 10.5 % (2.0-8.0); NEUTROPHILS % 49.7 % (36.0-66.0); PLATELET COUNT, AUTOMATED 296 10^3/uL (150-450); RED BLOOD COUNT 4.29 10^6/uL (4.00-5.40)
[2024-11-20 12:16] LABS: ALBUMIN 3.6 G/DL (3.2-5.2); ALKALINE PHOSPHATASE 69 U/L (35-104); ALT/SGPT 28 U/L (7.0-40); AST/SGOT 20 U/L (<34); BILIRUBIN,TOTAL 0.4 MG/DL (0.3-1.2); BLOOD UREA NITROGEN 20 MG/DL (9-23); CALCIUM LEVEL 9.5 MG/DL (8.3-10.6); CARBON DIOXIDE LEVEL 30 MMOL/L (20-31); CHLORIDE LEVEL 108 MMOL/L (98-107); CHOLESTEROL LEVEL 204 MG/DL (<200); CHOLESTEROL RISK RATIO 3.44 (<5); CREATININE FOR GFR 0.77 MG/DL (0.55-1.30); GLOMERULAR FILTRATION RATE > 60.0 (>45); GLUCOSE, FASTING 73 MG/DL (74-106); HDL CHOLESTEROL 59.3 MG/DL (>40); LDL CHOLESTEROL 134.9 MG/DL (<100); NON-HDL-C 144.7 MG/DL; POTASSIUM SERUM 4.8 MMOL/L (3.5-5.1); SODIUM LEVEL 142 MMOL/L (136-145); TOTAL PROTEIN 7.6 G/DL (5.7-8.2); TRIGLYCERIDES LEVEL 49 MG/DL (<150)
[2024-11-20 12:31] LABS: HEMOGLOBIN A1c 5.2 % (4.0-6.0)
== END ==
LOC: M PLALAB 08:08
PROVIDERS: ATTEND Registered Nurse
DX: Z00.00 Encounter for general adult medical examination without abnormal findings (principal)

== ENCOUNTER → 2024-12-06 | Outpatient (CLI) | payer OTHER | LOC: M WHC 08:47 | PROVIDERS: ATTEND Registered Nurse | DX: Z12.31 Encounter for screening mammogram for malignant neoplasm of breast (principal) ==

== ENCOUNTER → 2024-12-12 | Outpatient (CLI) | payer OTHER | LOC: M WHC 14:14 | PROVIDERS: ATTEND Registered Nurse | DX: R92.321 Mammographic fibroglandular density, right breast (principal) | CPT/HCPCS: 77065; G0279 ==

== ENCOUNTER → 2024-12-27 | Outpatient (CLI) | payer OTHER | LOC: M RAD 12:06 | PROVIDERS: ATTEND Obstetrics & Gynecology | DX: N95.1 Menopausal and female climacteric states (principal); E34.9 Endocrine disorder, unspecified; F52.0 Hypoactive sexual desire disorder ==

== ENCOUNTER → 2025-07-09 | Outpatient (REF) | payer OTHER ==
[2025-07-11 14:37] LABS: HPV APTIMA Not Detected (Not Detected)
== END ==
LOC: M LAB REF 17:24
PROVIDERS: ATTEND Family Medicine
DX: Z12.4 Encounter for screening for malignant neoplasm of cervix (principal); B37.9 Candidiasis, unspecified
CPT/HCPCS: 87624; G0123